=== PATIENT | female | born 2000 | race Caucasian/White ===

== ENCOUNTER 2020-03-12 11:24 | Emergency (ER) | payer MEDICAID, SELFPAY ==
[2020-03-12 11:59] VITALS: BP 112/76; PULSE 100; RESP 16; TEMP 37.1; O2SAT 99; BMI 23.8
--- NOTE | 2020-03-12 12:21 | ED.GENADULT ---
HPI - General Adult General Chief complaint: General Medical Stated complaint: SORE THROAT, WEAKNESS Time Seen by Provider: 03/12/20 12:19 Source: patient Mode of arrival: ambulatory Limitations: no limitations History of Present Illness HPI narrative: sore throat x 3 days. Denies Fevers, ear pain, nausea / vomiting, neck pain, stiff neck, trouble swallowing, changes in voices, cough, abdominal pain or urinary symptoms or diarrhea. Related Data Previous Rx's Medication Instructions Recorded acetaminophen-codeine 1 tab PO Q8H PRN #10 tab 03/12/20 amoxicillin-pot clavulanate 1 tab PO BID 10 Days #20 tab 03/12/20 [Augmentin] dexamethasone [Decadron] 6 mg PO ONCE #1 tab 03/12/20 Allergies Allergy/AdvReac Type Severity Reaction Status Date / Time PEANUT BUTTER Allergy Unknown RASH Uncoded 02/13/20 16:47 SEAFOOD Allergy Unknown UNKNOWN Uncoded 02/13/20 16:47 PMFSH Past Medical History Attestation statement: The following information was validated with the patient. Medical History Anxiety Asthma Social History Social History Alcohol intake: never Smoking Status: Never smoker Use of substances other than those prescribed or required for medical reasons: No Advance Directives: No Advance Directives Information Provided: No Physical Exam Vital Signs: Vital Signs: Vital Signs Temp Pulse Resp BP Pulse Ox 03/12/20 11:59 98.7 F 100 16 112/76 99 Body Mass Index 23.8 Const: General: cooperative, healthy appearing, comfortable, no acute distress, well developed, alert, awake and Physically active Nutritional Appearance: average body habitus and well nourished Orientation/consciousness: patient oriented x3 Limitations: no limitations HENMT: Head: Yes normal to inspection, Yes No palpable skull fracture present, Yes normocephalic and Yes atraumatic Ears: hearing grossly normal bilaterally General nose exam: Normal external nose present Face and sinus: Yes normal facial exam Mouth: moist mucous membranes Throat: Yes tonsils normal, Yes uvula midline and Yes other ( Erythema to posterior oropharynx with exudate noted) Eyes: General: appearance normal, both eyes and all related structures Visual Tatum: normal visual tatum by confrontation Alignment and Position: alignment normal Periorbital: periorbital findings normal Eyelids: Yes eyelids normal Conjunctivae: conjunctivae normal Sclerae: sclerae normal Pupils: Equal, round and reactive pupils present EOM: EOMs intact bilaterally Neck: Neck: Yes normal visual inspection, Yes full ROM, Yes no lymphadenopathy, Yes no meningeal signs, Yes trachea midline and Yes supple Chest: Chest palpation & inspection: normal inspection of the chest Resp: Effort & Inspection: normal respiratory effort and able to speak in complete sentences Auscultation: clear to auscultation bilaterally, no crackles, no rales, no rhonchi and no wheezes Cardio: Rate: regular rate Rhythm: regular rhythm Heart sounds: S1 normal heart sound present and S2 normal heart sound present Peripheral pulses: Peripheral pulses 2+ throughout GI: Inspection: Yes normal to inspection Palpation (GI): Soft to palpation, nontender and No hepatosplenomegaly present Percussion: Yes normal to percussion Auscultation: normal bowel sounds : General: Yes no CVA tenderness Back/Spine/Pelvis: Back: no CVA tenderness Cervical Spine: normal cervical lordosis and cervical ROM normal Thoracic/Lumbar Spine: thoracic and lumbar spine normal to inspection and thoraco-lumbar ROM normal Skin: General skin exam: no rashes or lesions noted, elasticity normal and turgor normal Trauma: no lacerations or abrasions Wounds: no wounds Hair: normal Nails: normal Neuro: General: patient oriented x3 and no meningeal signs Cranial nerves: Yes CN's II-XII intact bilaterally and Yes Equal, round and reactive pupils present Cognition (Neuro): normal cognition Gait exam (Neuro): Normal gait present Motor exam (neuro): 5/5 motor strength present throughout Extrem: General: Yes normal to inspection, Yes full ROM, Yes capillary refill normal, Yes no clubbing, cyanosis or edema, No no pedal edema, No no calf tenderness, Yes normal gait and No edema Right upper extremity: normal to inspection, full ROM and normal capillary refill; no edema Left upper extremity: normal to inspection, full ROM and normal capillary refill; no edema Right lower extremity: normal to inspection, full ROM and normal capillary refill; no edema Left lower extremity: normal to inspection, full ROM and normal capillary refill; no edema Psych: Appearance: grossly normal and well kempt Mental Status: mental status grossly normal Speech and movement: Normal speech and movement present and Clear speech present Affect: normal affect Attitude: cooperative Thought process: Normal thought process present Thought content: Normal thought content present Insight: Good insight present (Psych) Judgement: Good judgement present (Psych) Course Course Course Narrative: patient with sore throat for 3 days. Denies any other symptoms. On exam appears to have pharyngitis therefore would treat with antibiotics and symptomatic treatment along with instructions return if any new or worsening symptoms to follow-up with primary care provider. Patient understands agrees the plan. Discharge Plan Discharge Clinical Impression: Pharyngitis Patient Disposition: Home, Self-Care Instructions: Pharyngitis (ED) Prescriptions: New amoxicillin-pot clavulanate [Augmentin] 875-125 mg tablet 1 tab PO BID 10 Days Qty: 20 RF: 0 dexamethasone [Decadron] 6 mg tablet 6 mg PO ONCE Qty: 1 RF: 0 acetaminophen-codeine 300-30 mg tablet 1 tab PO Q8H PRN (Reason: pain) Qty: 10 RF: 0 Referrals: [facility] [Primary Care Provider] - 2 days Stand Alone Forms: Work/School Release Print Language: Jordanian
== END 2020-03-12 12:45 | disposition home or self-care (01) ==
PROVIDERS: Emergency Provider Emergency Medicine
DX: J02.9 Acute pharyngitis, unspecified (principal)
CPT/HCPCS: 87071; 99283

== ENCOUNTER 2020-03-16 13:13 | Emergency (ER) | payer MEDICAID, SELFPAY ==
--- NOTE | 2020-03-16 13:49 | ED.NAVMDI ---
HPI - Nausea/Vomiting/Diarrhea General Chief complaint: Nausea/Vomiting/Diarrhea Stated complaint: vomiting Time Seen by Provider: 03/16/20 13:48 Source: patient Mode of arrival: ambulatory Limitations: no limitations History of Present Illness HPI Narrative: 19 y/o female with recently diagnosed Strep throat started on Augmentin who presents with nausea, vomiting and burning chest pain associated with food intake for the last 2 days. She denies SOB, cough, abdominal pain, diarrhea, fevers. She was tested for COVID as well on 03/12 and it was negative. She continues to have sore throat although it is slowly improving. Related Data Previous Rx's Medication Instructions Recorded acetaminophen-codeine 1 tab PO Q8H PRN #10 tab 03/12/20 amoxicillin-pot clavulanate 1 tab PO BID 10 Days #20 tab 03/12/20 [Augmentin] dexamethasone [Decadron] 6 mg PO ONCE #1 tab 03/12/20 doxylamine-pyridoxine (vit B6) 1 tab PO BID #30 tab 03/16/20 [Diclegis] ondansetron HCl [Zofran] 4 mg PO Q8H PRN #20 tab 03/16/20 Allergies Allergy/AdvReac Type Severity Reaction Status Date / Time PEANUT BUTTER Allergy Unknown RASH Uncoded 02/13/20 16:47 SEAFOOD Allergy Unknown UNKNOWN Uncoded 02/13/20 16:47 Review of Systems Review of Systems: Constitutional: No Fever, No Chills ENT/Mouth: + sore throat, No Rhinorrhea, No Swallowing Difficulty Eyes: No Eye Pain, No Swelling, No Redness Cardiovascular: + Chest Pain, No SOB, No Orthopnea, No Edema Respiratory: No Cough, No Sputum, No Wheezing, No dyspnea Gastrointestinal: + Nausea, + Vomiting, No Diarrhea, No abdominal Pain Genitourinary: No Dysuria, No Urinary Frequency, No Hematuria Musculoskeletal: No joint pain, No Myalgias Skin: No Skin Lesions, No rash Neuro: No Weakness, No Numbness, No Dizziness, No Headache Psych: No Anxiety/Panic, No Depression Heme/Lymph: No Bruising, No Lymphadenopathy Endocrine: No Polyuria, No Polydipsia PMFSH Past Medical History Attestation statement: The following information was validated with the patient. Medical History Anxiety Asthma Social History Social History Alcohol intake: never Smoking Status: Never smoker Use of substances other than those prescribed or required for medical reasons: No Advance Directives: No Advance Directives Information Provided: No Physical Exam Vital Signs: Vital Signs: Vital Signs Temp Pulse Resp BP Pulse Ox 03/16/20 14:43 98.7 F 105 H 18 104/73 100 03/16/20 13:50 98.9 F 101 H 16 111/69 100 Body Mass Index 23.8 Appearance: Alert. Oriented X3. No acute distress. Eyes: Pupils equal, round and reactive to light. ENT: pharyngeal erythema with bilateral tonsillar swelling and exudates Neck: Normal inspection. Neck supple. CVS: tachycardic, regular rhythm. Pulses normal. Respiratory: No respiratory distress. Breath sounds normal. Abdomen: Soft and nontender. +BS x4 Skin: Skin warm and dry. Normal skin color. Normal skin turgor. No rashes. Extremities: No lower extremity edema. Neuro: Oriented X 3. No motor deficit. No sensory deficit. Course Course Course Narrative: patient with N/V and burning chest pain after food since starting Augmentin. Likely gastritis. Will get GI cockail, Zofran, IVF and check labs. Doubt cardiac chest pain. Reevaluation(s) Reevaluation #1: urine test is positive. patient has been informed. she states her last menstrual period was february 18. positive test explains her N/V. she has no abodominal pain and no vaginal bleeding at this time. will refer to OB for care. Reevaluation #2: nausea improved. she is tolerating PO. she states she is going to go to [facility] to pursue terminating the . she is stable for discharge. MDM - Nausea/Vomiting/Diarrhea Lab Data Attestation: I reviewed the patient's lab results. Result diagrams: 03/16/20 15:03 03/16/20 15:03 Labs: Lab Results 03/16/20 03/16/20 03/16/20 Range/Units 15:03 15:03 15:03 WBC 8.1 (4.8-10.8) X10*3/uL RBC 4.32 (4.20-5.50) X10*6/uL Hgb 12.8 (12.0-16.0) g/dl Hct 37.6 (37-47) % MCV 87.0 (80-98) fL MCH 29.6 (27.0-33.0) pg MCHC 34.0 (31.0-35.0) g/dl RDW 13.3 (11.0-16.0) % Plt Count 300 (160-400) X10*3/uL MPV 10.0 (9.4-12.3) fL Immature Gran % (Auto) 0.5 H (0.0-0.4) % Neut % (Auto) 67.9 (45-73) % Lymph % (Auto) 20.6 (20-40) % [place] % (Auto) 9.0 (2-11) % Eos % (Auto) 1.4 (0-4) % Baso % (Auto) 0.6 (0-2) % Lymph # (Auto) 1.7 (1.2-4.9) X10*3/uL [place] # (Auto) 0.7 (0.1-1.2) X10*3/uL Eos # (Auto) 0.1 (0.0-0.4) X10*3/uL Baso # (Auto) 0.1 (0.0-0.2) X10*3/uL Abs Immat Gran (auto) 0.04 H (0.00-0.03) X10*3/uL Absolute Neuts (auto) 5.5 (2.0-8.3) X10*3/uL Absolute Nucleated RBC 0.000 (0.0-0.012) X10*3/uL Nucleated RBC % (auto) 0.0 (0.0-0.2) /100WBC Sodium 135 (135-145) mmol/L Potassium 3.7 (3.3-5.1) mmol/l Chloride 100 (96-108) mmol/L Carbon Dioxide 26 (22-29) mmol/L Anion Gap 13 (12-20) BUN 8 L (9-16) mg/dL Creatinine 0.65 (0.5-1.4) mg/dL Estim Creat Clear Calc 108.2 Estimated GFR > 60 Random Glucose 96 (60-115) mg/dL Calcium 9.0 (8.4-10.2) mg/dL Total Bilirubin 0.5 (0.0-1.0) mg/dL Direct Bilirubin 0.2 (0.0-0.5) mg/dL AST 38 H (5-31) U/L ALT 31 (0-31) U/L Alkaline Phosphatase 72 (39-117) U/L Total Protein 8.4 H (6.5-8.0) g/dL Albumin 4.3 (3.5-5.0) g/dL Beta HCG, Quant 3043 mIU/mL Urine Color Urine Appearance Urine pH (5.0-8.0) Ur Specific [place] (1.005-1.025) Urine Protein (NEG-TRACE) MG/DL Urine Glucose (UA) (NEG) MG/DL Urine Ketones (NEG) MG/DL Urine Blood (NEG) Urine Nitrite (NEG) Ur Leukocyte Esterase (NEG) Urine Test (NEGATIVE) 03/16/20 Range/Units 15:09 WBC (4.8-10.8) X10*3/uL RBC (4.20-5.50) X10*6/uL Hgb (12.0-16.0) g/dl Hct (37-47) % MCV (80-98) fL MCH (27.0-33.0) pg MCHC (31.0-35.0) g/dl RDW (11.0-16.0) % Plt Count (160-400) X10*3/uL MPV (9.4-12.3) fL Immature Gran % (Auto) (0.0-0.4) % Neut % (Auto) (45-73) % Lymph % (Auto) (20-40) % [place] % (Auto) (2-11) % Eos % (Auto) (0-4) % Baso % (Auto) (0-2) % Lymph # (Auto) (1.2-4.9) X10*3/uL [place] # (Auto) (0.1-1.2) X10*3/uL Eos # (Auto) (0.0-0.4) X10*3/uL Baso # (Auto) (0.0-0.2) X10*3/uL Abs Immat Gran (auto) (0.00-0.03) X10*3/uL Absolute Neuts (auto) (2.0-8.3) X10*3/uL Absolute Nucleated RBC (0.0-0.012) X10*3/uL Nucleated RBC % (auto) (0.0-0.2) /100WBC Sodium (135-145) mmol/L Potassium (3.3-5.1) mmol/l Chloride (96-108) mmol/L Carbon Dioxide (22-29) mmol/L Anion Gap (12-20) BUN (9-16) mg/dL Creatinine (0.5-1.4) mg/dL Estim Creat Clear Calc Estimated GFR Random Glucose (60-115) mg/dL Calcium (8.4-10.2) mg/dL Total Bilirubin (0.0-1.0) mg/dL Direct Bilirubin (0.0-0.5) mg/dL AST (5-31) U/L ALT (0-31) U/L Alkaline Phosphatase (39-117) U/L Total Protein (6.5-8.0) g/dL Albumin (3.5-5.0) g/dL Beta HCG, Quant mIU/mL Urine Color YELLOW Urine Appearance CLEAR Urine pH 6.5 (5.0-8.0) Ur Specific [place] 1.020 (1.005-1.025) Urine Protein NEG (NEG-TRACE) MG/DL Urine Glucose (UA) NEG (NEG) MG/DL Urine Ketones 5 (NEG) MG/DL Urine Blood NEG (NEG) Urine Nitrite NEG (NEG) Ur Leukocyte Esterase NEG (NEG) Urine Test POSITIVE H (NEGATIVE) ECG Data Attestation: I personally reviewed and interpreted this ECG as follows: ECG interpretation date: 03/16/20 ECG interpretation time: 15:08 Interpretation: normal sinus rhythm with sinus arrythmia. HR 96 BPM with normal MI interval. Discharge Plan Discharge Clinical Impression: Qualifiers: Weeks of gestation: unspecified Qualified Code(s): Z34.90 - Encounter for supervision of normal , unspecified, unspecified trimester Patient Disposition: Home, Self-Care Instructions: Nausea and Vomiting in (ED), First Trimester (ED) Additional Instructions: Follow up with [facility] for care. Stay hydrated. Take TUMS for indigestion and acid reflux. If no improvement with TUMS, you can also try Prilosec to help reduce the acid in your stomach. If you develop persistent nausea and vomiting with inability to keep down solids or liquids, vaginal bleeding or abdominal pain call 911 or come back to the ER for further evaluation. Continue taking your antibiotic for Strep throat. Prescriptions: New doxylamine-pyridoxine (vit B6) [Diclegis] 10-10 mg tablet,delayed release (DR/EC) 1 tab PO BID Qty: 30 RF: 0 ondansetron HCl [Zofran] 4 mg tablet 4 mg PO Q8H PRN (Reason: nausea and vomiting) Qty: 20 RF: 0 No Action amoxicillin-pot clavulanate [Augmentin] 875-125 mg tablet 1 tab PO BID 10 Days Qty: 20 RF: 0 dexamethasone [Decadron] 6 mg tablet 6 mg PO ONCE Qty: 1 RF: 0 acetaminophen-codeine 300-30 mg tablet 1 tab PO Q8H PRN (Reason: pain) Qty: 10 RF: 0 Referrals: Matthias Hannon MD [Physician] - 2 days
[2020-03-16 13:50] VITALS: BP 111/69; PULSE 101; RESP 16; TEMP 37.2; O2SAT 100; BMI 23.8
--- NOTE | 2020-03-16 14:12 | ECG_ITS ---
Test Reason : chest pain Blood Pressure : / mmHG Vent. Rate : 096 BPM Atrial Rate : 096 BPM P-R Int : 126 ms QRS Dur : 078 ms QT Int : 342 ms P-R-T Axes : 057 054 041 degrees QTc Int : 432 ms Normal sinus rhythm with sinus arrhythmia Possible Early repolarization Normal ECG When compared with ECG of 20-AUG-2018 11:52, Heart rate has decreased Referred By: Candice Thompson Electronically Signed By:BRITTANY JACOBS MD
[2020-03-16 14:43] VITALS: BP 104/73; PULSE 105; RESP 18; TEMP 37.1; O2SAT 100
--- NOTE | 2020-03-16 14:54 | PC.NURSE ---
pt alert and oriented, skin pwd, respirations even an unlabored. pt reports last two days having epigastric pain with vomiting, also states chest pain that is relieved with vomiting. pt is currently being treated with antibiotics for strep throat, ns on the monitor
[2020-03-16] MEDS: 0.9 % Sodium Chloride 1,000 ML 999 ML IVCONT (15:05)
[2020-03-16] MEDS: ondansetron HCL 4 MG/2 ML VIAL IVPUSH (15:10)
[2020-03-16 15:12] LABS: MANUAL DIFF FLAG NO
[2020-03-16 15:13] LABS: Basophils Absolute Auto 0.1 X10*3/uL (0.0-0.2); Basophils Percent Auto 0.6 % (0-2); Eosinophils Absolute Auto 0.1 X10*3/uL (0.0-0.4); Eosinophils Percent Auto 1.4 % (0-4); Hematocrit 37.6 % (37-47); Hemoglobin 12.8 g/dl (12.0-16.0); Imm Gran Abs Auto 0.04 X10*3/uL (0.00-0.03); Imm Gran Pct Auto 0.5 % (0.0-0.4); Lymphocytes Absolute Auto 1.7 X10*3/uL (1.2-4.9); Lymphocytes Percent Auto 20.6 % (20-40); Mean Corpuscular Hemoglobin 29.6 pg (27.0-33.0); Monocytes Absolute Auto 0.7 X10*3/uL (0.1-1.2); Neutrophils Absolute Auto 5.5 X10*3/uL (2.0-8.3); Neutrophils Percent Auto 67.9 % (45-73); Platelet Count 300 X10*3/uL (160-400); Red Blood Count 4.32 X10*6/uL (4.20-5.50); Red Cell Distribution Width 13.3 % (11.0-16.0); White Blood Count 8.1 X10*3/uL (4.8-10.8)
[2020-03-16 15:16] LABS: Glucose Urine UA NEG (NEG); Leukocyte Esterase Urine NEG (NEG); Nitrite Urine NEG (NEG); PH 6.5 (5.0-8.0); Urine Blood NEG (NEG); Urine Ketones 5 MG/DL (NEG); Urine Protein NEG (NEG-TRACE)
[2020-03-16 15:23] LABS: Appearance Urine CLEAR; Color Urine YELLOW; UPreg QC Valid YES; Urine Pregnancy POSITIVE (NEGATIVE)
[2020-03-16 15:36] LABS: Alanine Aminotransferase 31 U/L (0-31); Albumin Level 4.3 g/dL (3.5-5.0); Alkaline Phosphatase 72 U/L (39-117); Anion Gap 13 (12-20); Aspartate Amino Transferase 38 U/L (5-31); Bilirubin Direct 0.2 mg/dL (0.0-0.5); Blood Urea Nitrogen 8 mg/dL (9-16); Carbon Dioxide 26 mmol/L (22-29); Chloride 100 mmol/L (96-108); Creatinine Clr Calc Pharmacy 108.2; Estimated Glomerular Filt Rate > 60; Glucose Random 96 mg/dL (60-115); Potassium 3.7 mmol/l (3.3-5.1); Sodium 135 mmol/L (135-145); Total Protein 8.4 g/dL (6.5-8.0)
[2020-03-16 15:41] LABS: HCG Quantitative 3043 mIU/mL
[2020-03-16] MEDS: Omeprazole 40 MG CAPSULE.DR PO (15:41)
[2020-03-16 15:44] LABS: Bilirubin Total 0.5 mg/dL (0.0-1.0)
--- NOTE | 2020-03-16 15:44 | PC.NURSE ---
PT REPORTS THAT HER NAUSEA IS SLIGHTLY BETTER, DID TAKE HER PRILOSEC BUT NOT READY TO DRINK THE MAG/LIDO, SINUS TACH ON THE MONIOTR AT THIS TIME
[2020-03-16] MEDS: Lidocaine HCl Viscous 2 % 15 ML SOLUTION MUCOUS MEM (16:37)
[2020-03-16] MEDS: Magnesium Hydrox/Alum Hydrox 30 ML ORAL.SUSP PO (16:37)
== END 2020-03-16 16:43 | disposition home or self-care (01) ==
PROVIDERS: Physician Assistant; Emergency Provider Emergency Medicine; PCP Internal Medicine
DX: O26.90 Pregnancy related conditions, unspecified, unspecified trimester (principal); Z3A.00 Weeks of gestation of pregnancy not specified
CPT/HCPCS: 36415; 80048; 80076; 81003; 81025; 84702; 85025; 93005; 96361; 96374; 99284; 99285; J2405

== ENCOUNTER → 2020-04-02 10:56 | Outpatient (BNVA) | payer MEDICAID, SELFPAY | PROVIDERS: Visit Provider Advanced Practice Midwife | DX: Z76.89 Persons encountering health services in other specified circumstances (principal) ==

== ENCOUNTER 2020-04-02 12:12 | Outpatient (REF) | payer MEDICAID, SELFPAY ==
--- NOTE | 2020-04-02 12:18 | US_ITS ---
EXAMINATION: US OBSTETRICAL ULTRASOUND CLINICAL INFORMATION: Left lower quadrant pain. Early . COMPARISON: None. LMP: Unknown. TECHNIQUE: Ultrasound of the maternal pelvis is performed using transabdominal transducer. M-mode Doppler is also performed. FINDINGS: There is a single intrauterine gestational sac with visible yolk sac, embryo/fetus, and cardiac activity. There is no significant subchorionic hemorrhage or hematoma. The sac is within the upper limits of normal measuring 0.54 cm (inner to inner diameter). HR: 147 beats per minute. CRL (crown rump length): 0.78 cm (6 weeks 5 days +/- 4 days). SHIVAM (estimated date of delivery): 11/21/2020 +/- 4 days. MATERNAL ADNEXA: The right maternal ovary measures 2.8 x 1.8 x 2.5 cm. The left maternal ovary measures 2.4 x 1.6 x 1.9 cm. No significant maternal adnexal mass. No maternal pelvic ascites. US/US OB <= 14 weeks fetus IMPRESSION: 1. Single intrauterine gestation with ultrasound gestational age of 6 weeks 5 days +/- 4 days. 2. Estimated date of delivery is 11/21/2020 +/- 4 days. 3. No maternal adnexal mass or pelvic ascites.
== END 2020-04-02 12:13 | disposition home or self-care (01) ==
LOC: HO.US 12:12
PROVIDERS: Visit Provider Advanced Practice Midwife
DX: O26.899 Other specified pregnancy related conditions, unspecified trimester (principal); R10.32 Left lower quadrant pain
CPT/HCPCS: 76801; 99211

== ENCOUNTER 2020-04-22 23:46 | Emergency (ER) | payer MEDICAID, SELFPAY ==
[2020-04-23 00:19] VITALS: BP 132/93; PULSE 123; RESP 18; TEMP 36.8; O2SAT 98; BMI 22.3
[2020-04-23 00:28] VITALS: BP 132/93; PULSE 129; RESP 18; TEMP 36.8; O2SAT 98
--- NOTE | 2020-04-23 01:03 | ED_ITS ---
HPI - General Adult General Chief complaint: General Medical Stated complaint: Foot swelling Time Seen by Provider: 04/23/20 00:13 Source: patient Mode of arrival: ambulatory Limitations: no limitations History of Present Illness HPI narrative: Patient presents to the ED for ulcerative rash on bilateral lower extremities that was initially diagnosed as follicutlitis. Patient states now foot has same erythematous rash and slight swelling. Related Data Previous Rx's Medication Instructions Recorded acetaminophen-codeine 1 tab PO Q8H PRN #10 tab 03/12/20 amoxicillin-pot clavulanate 1 tab PO BID 10 Days #20 tab 03/12/20 [Augmentin] dexamethasone [Decadron] 6 mg PO ONCE #1 tab 03/12/20 doxylamine-pyridoxine (vit B6) 1 tab PO BID #30 tab 03/16/20 [Diclegis] ondansetron HCl [Zofran] 4 mg PO Q8H PRN #20 tab 03/16/20 vitamin with calcium 1 tab PO DAILY 30 Days #30 tab 04/02/20 no.72-iron 27 mg-folic acid 1 mg tablet doxycycline monohydrate 100 mg PO BID #14 cap 04/23/20 Allergies Allergy/AdvReac Type Severity Reaction Status Date / Time PEANUT BUTTER Allergy Intermediate RASH Uncoded 04/23/20 00:19 SEAFOOD AdvReac Severe Anaphylaxis Uncoded 04/23/20 00:19 Review of Systems Review of Systems: Yes all other systems are reviewed and are negative Constitutional: Constitutional: Reports as per HPI and Reports no additional constitutional complaints Eyes: Eyes: Reports as per HPI and Reports no additional eye complaints ENT: Reports system reviewed and no additional complaints, except as documented and Reports as per HPI Cardiovascular: Cardiovascular: Reports as per HPI and Reports no additional cardiovascular complaints Respiratory: Respiratory: Reports as per HPI and Reports no additional respiratory complaints Gastrointestinal: Gastrointestinal: Reports as per HPI and Reports no additional gastrointestinal complaints Genitourinary: Genitourinary: Reports no additional female genitourinary compl aints and Reports as per HPI Musculoskeletal: Comments: lower extremities rash Neurologic: Reports system reviewed and no additional complaints, except as documented and Reports as per HPI Psychiatric: Psychiatric: Reports no additional psychiatric complaints and Reports as per HPI PMFSH Past Medical History Medical History Anxiety Asthma Social History Social History Alcohol intake: never Smoking Status: Never smoker Smoked in Last 30 Days: No Advance Directives: No Physical Exam Vital Signs: Vital Signs: Last Vital Signs Temp 98.2 F 04/23/20 00:28 Pulse 106 H 04/23/20 01:11 Resp 18 04/23/20 01:11 BP 116/74 04/23/20 01:11 Pulse Ox 99 04/23/20 01:11 Body Mass Index 22.3 Const: General: cooperative, healthy appearing, comfortable, no acute distress and well developed Orientation/consciousness: oriented to person, oriented to place and patient oriented x3 HENMT: Head: Yes normal to inspection and Yes No palpable skull fracture present Eyes: General: appearance normal, both eyes and all related structures Neck: Neck: Yes normal visual inspection and Yes full ROM Chest: Chest palpation & inspection: normal inspection of the chest and normal palpation of entire chest wall Resp: Effort & Inspection: normal respiratory effort and able to speak in complete sentences Cardio: Jugular venous distension: no JVD Heart sounds: S1 normal heart sound present and S2 normal heart sound present GI: Inspection: Yes normal to inspection : General: No CVA tenderness and Yes no CVA tenderness Back/Spine/Pelvis: Back: no CVA tenderness, No CVA tenderness and No back tenderness Skin: Other: Lower extremities positive for multiple circular areas with pustule/papule and ulcerated. Left foot has erythema also with pustule/ulcer and sligh slight swelling. negative for leg swelling or calf pain Patient also has post still slight ulceration on 2 fingers on each hand. Patient also has 1 pustule on the back. Neuro: General: oriented to person, oriented to place, patient oriented x3, gait normal and CN's II-XI intact bilaterally Cranial nerves: Yes CN's II-XII intact bilaterally Extrem: Other: Pustular erythematous ulcerated rash on lower extremities. Pulses lower extremities intact Psych: Appearance: grossly normal, well kempt and not disheveled Course Course Course Narrative: rash evaluated with Dr. 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 Will do basic labs including CRP and ESR. Patient states he just started Keflex yesterday. Will add doxycycline p.o. Reevaluation(s) Reevaluation #1: elevated ESR and CRP indicates inflammatory process occurring. according to UpToDate patient will need outpatient lab work to evaluate for lupus, rheumatoid arthritis, hyper coagulability disorders, and hepatitis. Patient made aware of this. Patient also have referral to Dermatology. Patient will have doxycycline added to Keflex due to mild cellulitis of the left foot. Patient is not toxic appearing. Patient is not septic and does not need septic workup. Patient tachycardia improved. Patient was anxious. Patient informed if he has fever, chills chest pain, shortness of breath, worsening swelling, or any other concerning symptoms she should come back to the ER immediately. patient informed to continue taking Keflex. Patient given copy of labs. Medical Decision Making MDM Narrative Medical decision making narrative: Pyoderma gangrenosum Lab Data Result diagrams: 04/23/20 00:40 04/23/20 00:40 Labs: Lab Results 04/23/20 04/23/20 04/23/20 Range/Units 00:40 00:40 00:40 WBC 12.2 H (4.8-10.8) X10*3/uL RBC 4.06 L (4.20-5.50) X10*6/uL Hgb 11.7 L (12.0-16.0) g/dl Hct 36.1 L (37-47) % MCV 88.9 (80-98) fL MCH 28.8 (27.0-33.0) pg MCHC 32.4 (31.0-35.0) g/dl RDW 13.9 (11.0-16.0) % Plt Count 269 (160-400) X10*3/uL MPV 11.3 (9.4-12.3) fL Immature Gran % (Auto) 0.3 (0.0-0.4) % Neut % (Auto) 66.6 (45-73) % Lymph % (Auto) 20.4 (20-40) % Fulton % (Auto) 9.9 (2-11) % Eos % (Auto) 2.4 (0-4) % Baso % (Auto) 0.4 (0-2) % Lymph # (Auto) 2.5 (1.2-4.9) X10*3/uL Fulton # (Auto) 1.2 (0.1-1.2) X10*3/uL Eos # (Auto) 0.3 (0.0-0.4) X10*3/uL Baso # (Auto) 0.1 (0.0-0.2) X10*3/uL Abs Immat Gran (auto) 0.04 H (0.00-0.03) X10*3/uL Absolute Neuts (auto) 8.1 (2.0-8.3) X10*3/uL Absolute Nucleated RBC 0.000 (0.0-0.012) X10*3/uL Nucleated RBC % (auto) 0.0 (0.0-0.2) /100WBC PT 14.8 H (10.8-13.0) SEC INR 1.2 H (0.9-1.1) APTT 38.0 (24.1-38.0) SEC Sodium 139 (135-145) mmol/L Potassium 4.1 (3.3-5.1) mmol/l Chloride 104 (96-108) mmol/L Carbon Dioxide 27 (22-29) mmol/L Anion Gap 12 (12-20) BUN 10 (9-16) mg/dL Creatinine 0.70 (0.5-1.4) mg/dL Estim Creat Clear Calc 100.5 Estimated GFR > 60 Random Glucose 106 (60-115) mg/dL Calcium 9.4 (8.4-10.2) mg/dL Total Bilirubin 0.5 (0.0-1.0) mg/dL AST 16 D (5-31) U/L ALT 12 (0-31) U/L Alkaline Phosphatase 73 (39-117) U/L C-Reactive Protein 4.18 H (< or = 0.50) mg/dL Total Protein 8.7 H (6.5-8.0) g/dL Albumin 4.1 (3.5-5.0) g/dL Discharge Plan Discharge Clinical Impression: Pyoderma gangrenosa, Cellulitis Patient Disposition: Home, Self-Care Instructions: Cellulitis (ED) Prescriptions: New doxycycline monohydrate 100 mg capsule 100 mg PO BID Qty: 14 RF: 0 No Action amoxicillin-pot clavulanate [Augmentin] 875-125 mg tablet 1 tab PO BID 10 Days Qty: 20 RF: 0 dexamethasone [Decadron] 6 mg tablet 6 mg PO ONCE Qty: 1 RF: 0 acetaminophen-codeine 300-30 mg tablet 1 tab PO Q8H PRN (Reason: pain) Qty: 10 RF: 0 doxylamine-pyridoxine (vit B6) [Diclegis] 10-10 mg tablet,delayed release (DR/EC) 1 tab PO BID Qty: 30 RF: 0 ondansetron HCl [Zofran] 4 mg tablet 4 mg PO Q8H PRN (Reason: nausea and vomiting) Qty: 20 RF: 0 Vitamin Plus Low Iron 27 mg iron- 1 mg tablet 1 tab PO DAILY 30 Days Qty: 30 RF: 11 Referrals: Falguni Guadarrama MD [Primary Care Provider] - 2 days (Rash indicates Pyoderma gangrenosum. Will labs such as hepatic panel, RH factor, Antineutrophilic cytoplasmic antibodies, Antinuclear antibody titer, and hypercoagulability studies. Patient will need referral to Dermitalogist. ) Marky Head MD [Physician] - 2 days (Pyoderma Gangrenosum.) Discharge Date/Time: 04/23/20 02:09 Print Language: Macedonian
[2020-04-23 01:11] VITALS: BP 116/74; PULSE 106; RESP 18; O2SAT 99
[2020-04-23 01:15] LABS: Basophils Absolute Auto 0.1 X10*3/uL (0.0-0.2); Basophils Percent Auto 0.4 % (0-2); Eosinophils Absolute Auto 0.3 X10*3/uL (0.0-0.4); Eosinophils Percent Auto 2.4 % (0-4); Hematocrit 36.1 % (37-47); Hemoglobin 11.7 g/dl (12.0-16.0); Imm Gran Abs Auto 0.04 X10*3/uL (0.00-0.03); Imm Gran Pct Auto 0.3 % (0.0-0.4); Lymphocytes Absolute Auto 2.5 X10*3/uL (1.2-4.9); Lymphocytes Percent Auto 20.4 % (20-40); MANUAL DIFF FLAG NO; Mean Corpuscular HGB Conc 32.4 g/dl (31.0-35.0); Mean Corpuscular Hemoglobin 28.8 pg (27.0-33.0); Mean Corpuscular Volume 88.9 fL (80-98); Mean Platelet Volume 11.3 fL (9.4-12.3); Monocytes Absolute Auto 1.2 X10*3/uL (0.1-1.2); Monocytes Percent Auto 9.9 % (2-11); Neutrophils Absolute Auto 8.1 X10*3/uL (2.0-8.3); Neutrophils Percent Auto 66.6 % (45-73); Platelet Count 269 X10*3/uL (160-400); Red Blood Count 4.06 X10*6/uL (4.20-5.50); Red Cell Distribution Width 13.9 % (11.0-16.0); White Blood Count 12.2 X10*3/uL (4.8-10.8)
[2020-04-23 01:20] LABS: INTERNATIONAL NORM RATIO 1.2 (0.9-1.1); Prothrombin Time 14.8 SEC (10.8-13.0)
[2020-04-23 01:44] LABS: Alanine Aminotransferase 12 U/L (0-31); Albumin Level 4.1 g/dL (3.5-5.0); Alkaline Phosphatase 73 U/L (39-117); Anion Gap 12 (12-20); Aspartate Amino Transferase 16 U/L (5-31); Bilirubin Total 0.5 mg/dL (0.0-1.0); Blood Urea Nitrogen 10 mg/dL (9-16); C Reactive Protein 4.18 mg/dL (< or = 0.50); Calcium 9.4 mg/dL (8.4-10.2); Carbon Dioxide 27 mmol/L (22-29); Chloride 104 mmol/L (96-108); Creatinine Clr Calc Pharmacy 100.5; Estimated Glomerular Filt Rate > 60; Glucose Random 106 mg/dL (60-115); Potassium 4.1 mmol/l (3.3-5.1); Sodium 139 mmol/L (135-145); Total Protein 8.7 g/dL (6.5-8.0)
[2020-04-23 01:50] LABS: Erythrocyte Sedimentation Rate 54 MM/HR (0-20)
== END 2020-04-23 02:09 | disposition home or self-care (01) ==
PROVIDERS: Physician Assistant; Emergency Provider Emergency Medicine; PCP Internal Medicine
DX: L88 Pyoderma gangrenosum (principal); L03.116 Cellulitis of left lower limb; L03.115 Cellulitis of right lower limb; Z79.899 Other long term (current) drug therapy
CPT/HCPCS: 36415; 80053; 85025; 85610; 85652; 85730; 86140; 99283; 99284

== ENCOUNTER → 2020-05-11 14:03 | Outpatient (BNVA) | payer MEDICAID, SELFPAY | PROVIDERS: Visit Provider Advanced Practice Midwife | DX: Z76.89 Persons encountering health services in other specified circumstances (principal) ==

== ENCOUNTER 2020-11-26 02:16 | Emergency (ER) | payer MEDICAID, SELFPAY ==
[2020-11-26 02:20] VITALS: BP 139/89; PULSE 128; RESP 16; TEMP 36.2; O2SAT 97; BMI 23.8
--- NOTE | 2020-11-26 02:48 | PC.NURSE ---
PT WENT OUT TO MEET HER MOM IN CAR, NEVER CAME BACK IN.
== END 2020-11-26 03:27 | disposition left against medical advice (07) ==
PROVIDERS: Emergency Provider Emergency Medicine; PCP Internal Medicine
DX: R10.9 Unspecified abdominal pain (principal)
CPT/HCPCS: 99281; 99282

== ENCOUNTER 2021-04-06 02:06 | Emergency (ER) | payer MEDICAID, SELFPAY ==
[2021-04-06 02:09] VITALS: BP 121/76; PULSE 112; RESP 18; TEMP 36.6; O2SAT 97; BMI 24.1
--- NOTE | 2021-04-06 02:44 | ED_ITS ---
HPI - Abdominal Pain General Chief Complaint: Abdominal Pain Stated Complaint: Flank pain Time Seen by Provider: 04/06/21 02:12 Source: patient Mode of arrival: ambulatory Limitations: no limitations History of Present Illness HPI narrative: LLQ pain prior to arrival initially severe but now its gone and she feels fine - no other symptoms, thinks it's gas and wants to go home. Does not want to be seen back in the ED or to have treatments done. No concern for . ELOPED from the TRIAGE area. We did speak and I tried to get her to come back to be seen but she would not go back to treatment area, history and exam limited MD elicited complaint: abdominal pain Pertinent past history: none Onset (ago): minute(s) Pain Consistency: now resolved Location: LLQ Severity: moderate Quality: stabbing Radiation: none Exacerbating factors: nothing Relieving factors: nothing Associated symptoms: denies other symptoms Related Data Previous Rx's Medication Instructions Recorded acetaminophen 300 mg-codeine 30 mg 1 tab PO Q8H PRN #10 tab 03/12/20 tablet amoxicillin 875 mg-potassium 1 tab PO BID 10 Days #20 tab 03/12/20 clavulanate 125 mg tablet (Augmentin) dexamethasone 6 mg tablet 6 mg PO ONCE #1 tab 03/12/20 (Decadron) doxylamine 10 mg-pyridoxine (vit 1 tab PO BID #30 tab 03/16/20 B6) 10 mg tablet,delayed release (Diclegis) ondansetron HCl 4 mg tablet 4 mg PO Q8H PRN #20 tab 03/16/20 (Zofran) vitamin with calcium 1 tab PO DAILY 30 Days #30 tab 04/02/20 no.72-iron 27 mg-folic acid 1 mg tablet ( Vitamins Plus Low Iron) doxycycline monohydrate 100 mg 100 mg PO BID #14 cap 04/23/20 capsule Allergies Allergy/AdvReac Type Severity Reaction Status Date / Time PEANUT BUTTER Allergy Intermediate RASH Uncoded 04/23/20 00:19 SEAFOOD AdvReac Severe Anaphylaxis Uncoded 04/23/20 00:19 Review of Systems Review of Systems Constitutional : No Weight loss, No Fever, No Chills ENT/Mouth : No sore throat, No Rhinorrhea Eyes: No Swelling, No Redness Cardiovascular : No Chest Pain, No SOB, NoEdema Respiratory : No Cough, No Sputum, No Wheezing Gastrointestinal :no Nausea, no Vomiting, no Diarrhea, positive abdominal Pain, No Hematochezia, No Melena Genitourinary : No Dysuria, No Urinary Frequency, No Hematuria, No Urgency Musculoskeletal : No joint pain, No Myalgias, No Joint Swelling Physical Exam Vital Signs: Vital Signs: Last Vital Signs Temp 97.8 F 04/06/21 02:09 Pulse 112 H 04/06/21 02:09 Resp 18 04/06/21 02:09 BP 121/76 04/06/21 02:09 Pulse Ox 97 04/06/21 02:09 Body Mass Index 24.1 PATIENT WAS NOT EXAMINED I SPOKE TO HER IN TRIAGE TO TRY TO GET HER TO COME BACK TO A TREATMENT AREA AFTER HER ABDOMINAL PAIN RESOLVED MDM - Abdominal Pain MDM Narrative Medical decision making narrative: LLQ pain resolved while waiting in triage, while we did speak she wanted to leave and not come back to the treatment area - stable for DC, ELOPED Discharge Plan Discharge Clinical Impression: Abdominal pain Qualifiers: Abdominal location: left lower quadrant Qualified Code(s): R10.32 - Left lower quadrant pain Patient Disposition: Elopement Prescriptions: No Action amoxicillin-pot clavulanate [Augmentin] 875-125 mg tablet 1 tab PO BID 10 Days Qty: 20 RF: 0 dexamethasone [Decadron] 6 mg tablet 6 mg PO ONCE Qty: 1 RF: 0 acetaminophen-codeine 300-30 mg tablet 1 tab PO Q8H PRN (Reason: pain) Qty: 10 RF: 0 doxylamine-pyridoxine (vit B6) [Diclegis] 10-10 mg tablet,delayed release (DR/EC) 1 tab PO BID Qty: 30 RF: 0 ondansetron HCl [Zofran] 4 mg tablet 4 mg PO Q8H PRN (Reason: nausea and vomiting) Qty: 20 RF: 0 doxycycline monohydrate 100 mg capsule 100 mg PO BID Qty: 14 RF: 0 Vitamin Plus Low Iron 27 mg iron- 1 mg tablet 1 tab PO DAILY 30 Days Qty: 30 RF: 11 Discharge Date/Time: 04/06/21 03:04 [facility] Past Medical History Attestation statement: The following information was validated with the patient. Medical History Anxiety Asthma Social History Social History (Updated 04/06/21 @ 02:53 by Lin Ramirez DO) Alcohol intake: never Patient Tobacco Use Status: Never used Tobacco Advance Directives: No Patient : No
== END 2021-04-06 03:04 | disposition left against medical advice (07) ==
PROVIDERS: Emergency Provider Emergency Medicine
DX: R10.32 Left lower quadrant pain (principal)
CPT/HCPCS: 99281; 99282

== ENCOUNTER 2021-10-01 05:37 | Emergency (ER) | payer MEDICAID, SELFPAY ==
[2021-10-01 05:40] VITALS: BP 113/72; BP 120/80; PULSE 104; PULSE 115; RESP 18; TEMP 37.5; O2SAT 98; O2SAT 99; BMI 23.9
--- NOTE | 2021-10-01 05:57 | ED.DENTAL ---
HPI - Dental/Oral General Chief complaint: Nausea/Vomiting/Diarrhea Stated complaint: N/V Time Seen by Provider: 10/01/21 05:51 Source: patient Mode of arrival: ambulatory Limitations: no limitations History of Present Illness HPI Narrative: Patient with ongoing pain of right lower 3rd molar with over growing gum with pain patient vomits vomited 2 times with increased pain today plan to get the surgery done following dentist Related Data Previous Rx's Medication Instructions Recorded acetaminophen 300 mg-codeine 30 mg 1 tab PO Q8H PRN #10 tab 03/12/20 tablet amoxicillin 875 mg-potassium 1 tab PO BID 10 Days #20 tab 03/12/20 clavulanate 125 mg tablet (Augmentin) dexamethasone 6 mg tablet 6 mg PO ONCE #1 tab 03/12/20 (Decadron) doxylamine 10 mg-pyridoxine (vit 1 tab PO BID #30 tab 03/16/20 B6) 10 mg tablet,delayed release (Diclegis) ondansetron HCl 4 mg tablet 4 mg PO Q8H PRN #20 tab 03/16/20 (Zofran) vitamin with calcium 1 tab PO DAILY 30 Days #30 tab 04/02/20 no.72-iron 27 mg-folic acid 1 mg tablet ( Vitamins Plus Low Iron) doxycycline monohydrate 100 mg 100 mg PO BID #14 cap 04/23/20 capsule ondansetron 4 mg disintegrating 4 mg PO Q6-8H PRN #7 tab 10/01/21 tablet tramadol 50 mg tablet 50 mg PO Q6H PRN #20 tab 10/01/21 Allergies Allergy/AdvReac Type Severity Reaction Status Date / Time PEANUT BUTTER Allergy Intermediate RASH Uncoded 04/23/20 00:19 SEAFOOD AdvReac Severe Anaphylaxis Uncoded 04/23/20 00:19 Review of Systems Review of Systems: Yes all other systems are reviewed and are negative PMF Past Medical History Medical History Anxiety Asthma Social History Social History Alcohol intake: never Patient Tobacco Use Status: Never used Tobacco Advance Directives: No Patient : No Physical Exam Vital Signs: Vital Signs: Last Vital Signs Temp 99.5 F 10/01/21 05:40 Pulse 104 H 10/01/21 05:40 Resp 18 10/01/21 05:40 BP 113/72 10/01/21 05:40 Pulse Ox 98 10/01/21 05:40 BMI result Body Mass Index 23.9 Const: General: healthy appearing and comfortable HEENT: Teeth image: 1. Gum over tooth 32 no caries tender to touch Throat: Yes posterior oropharynx normal Procedures Nerve Block Nerve Block 1: Local Anesthetic: lidocaine 2% Side: right Intraoral Nerve Block: inferior alveolar Procedure Successful: Yes Patient Tolerated Procedure: well and no complications Complications: none Discharge Plan Discharge Clinical Impression: Toothache Patient Disposition: Home, Self-Care Instructions: Toothache (ED) Additional Instructions: Follow-up with dentist Pain medicine as Prescriptions: New tramadol 50 mg tablet 50 mg PO Q6H PRN (Reason: pain) Qty: 20 0RF ondansetron 4 mg tablet,disintegrating 4 mg PO Q6-8H PRN (Reason: nausea and vomiting) Qty: 7 0RF No Action amoxicillin-pot clavulanate [Augmentin] 875-125 mg tablet 1 tab PO BID 10 Days Qty: 20 0RF dexamethasone [Decadron] 6 mg tablet 6 mg PO ONCE Qty: 1 0RF acetaminophen-codeine 300-30 mg tablet 1 tab PO Q8H PRN (Reason: pain) Qty: 10 0RF doxylamine-pyridoxine (vit B6) [Diclegis] 10-10 mg tablet,delayed release (DR/EC) 1 tab PO BID Qty: 30 0RF ondansetron HCl [Zofran] 4 mg tablet 4 mg PO Q8H PRN (Reason: nausea and vomiting) Qty: 20 0RF doxycycline monohydrate 100 mg capsule 100 mg PO BID Qty: 14 0RF Vitamin Plus Low Iron 27 mg iron- 1 mg tablet 1 tab PO DAILY 30 Days Qty: 30 11RF Rx Instructions: give with food (meal/snack)
[2021-10-01] MEDS: Lidocaine HCl 2 % MPF 5 ML VIAL INFILTRATI (05:59)
[2021-10-01] MEDS: Ondansetron ODT 4 MG TAB.RAPDIS TRANSLINGU (06:19)
== END 2021-10-01 06:44 | disposition home or self-care (01) ==
PROVIDERS: Emergency Provider Internal Medicine
DX: K08.89 Other specified disorders of teeth and supporting structures (principal); J45.909 Unspecified asthma, uncomplicated
CPT/HCPCS: 64400; 99283; 99284

== ENCOUNTER 2023-03-20 23:40 | Emergency (ER) | payer MEDICAID, SELFPAY ==
[2023-03-20 23:47] VITALS: BP 116/66; PULSE 97; RESP 18; TEMP 36.7; O2SAT 100; BMI 26.5
--- OUTSIDE RECORDS SUMMARY | 2023-03-20 23:58 | XMS_ITS | Continuity of Care Document ---
Author Name Unknown Organization [facility] Address [address] [place] [id number]- Care Team Providers Care Senior Tax Accountant Name Role Phone Wili Chapa MD, Falguni Wells Primary Care Physici an Encounter [facility] Date(s): 11/09/22 - 12/09/[address] [address]- Allergies, Adverse Reactions, Alerts Substance Reaction Severity Status Peanuts Active Seafood Persistent Severe Active Immunizations Given and Recorded Vaccine Date Status Refusal Reason influenza virus vaccine, inactivated 02/20/17 Aba rded influenza virus vaccine, inactivated 04/13/15 Aba rded influenza virus vaccine, inactivated 02/19/14 Aba rded influenza virus vaccine, inactivated 07/01/13 Aba rded influenza virus vaccine, inactivated 04/29/10 Aba rded hepatitis B adult vaccine 07/29/16 Recorded Meningococcal Conjugate Vaccine 12/31/14 Recorded Meningococcal Conjugate Vaccine 04/29/10 Recorded Hepatitis A Pediatric Vaccine 12/31/14 Recorded Hepatitis A Pediatric Vaccine 05/14/14 Recorded tetanus/diphtheria/pertussis, acel(Tdap) 09/23/13 Recorded Human Papillomavirus Vaccine 03/20/12 Recorded Human Papillomavirus Vaccine 11/07/11 Recorded Human Papillomavirus Vaccine 04/29/10 Recorded tetanus-diphtheria toxoids (Td) 10/06/08 Recorded Varicella Virus Vaccine 02/19/08 Recorded Varicella Virus Vaccine 09/23/99 Recorded Poliovirus Vaccine, Inactivated 11/25/02 Recorded Measles/Mumps/Rubella Virus Vaccine 11/25/02 Recor ded Measles/Mumps/Rubella Virus Vaccine 09/23/99 Recor ded diphtheria/tetanus/pertussis, acel(DTaP) 11/25/02 Recorded diphtheria/tetanus/pertussis, acel(DTaP) 03/22/99 Recorded Diphth/haemophilus/pertussis/tet/polio 02/17/00 Re corded Diphth/haemophilus/pertussis/tet/polio 01/19/99 Re corded Diphth/haemophilus/pertussis/tet/polio 98 Re corded hepatitis B pediatric vaccine 06/21/99 Recorded hepatitis B pediatric vaccine 98 Recorded hepatitis B pediatric vaccine 98 Recorded Medications Benadryl Allergy Sinus 0 Refills, Maintenance, 08/13/14 14:48:35 Start Date: 08/13/14 Status: Ordered Celebrate Vitamin D3 Quick-Melt = 2,000 units, By Mouth, Daily, 0 Refills, Maintenance, 11/19/17 16:52:06 EDT Start Date: 11/19/17 Status: Ordered Fluoxetine By Mouth, 0 Refills, Maintenance, 05/16/18 14:53:23 EST Start Date: 05/16/18 Status: Ordered HydrOXYzine 0 Refills, Maintenance, 05/16/18 14:53:13 EST Start Date: 05/16/18 Status: Ordered Ibuprofen Maintenance, 08/13/14 14:48:14 Start Date: 08/13/14 Status: Ordered Nexium 20 mg oral enteric coated capsule 1 capsule = 20 mg, By Mouth, Daily, # 30 capsule, 0 Refills, Maintenance, 12/12/17 1:08:41 EDT, EC Capsule Start Date: 12/12/17 Status: Ordered Singulair By Mouth, Daily before dinner, 0 Refills, Maintenance, 08/13/14 14:47:59 Start Date: 08/13/14 Status: Ordered Problem List Condition Confirmation Course Effective Dates Status Health St atus Informant Anxiety Confirmed Active Asthma Confirmed Active echogenic intracardiac focus on ultrasound Confirmed Active Hx of migraines Confirmed Active Rubella non-immune status, antepartum Confirmed Active Social History Social History Type Response Smoking Status Never (less than 100 in lifetime) entered on: 09/26/22 Sex Patient Care team information Care Team Personnel Name: Falguni Guadarrama MD Position: [facility] Outreach Member Role: PCP Address: Address: [address] [place] [address] [address] [place] [address]- Care Team Related Persons Name: ROSEMARIE RUTLEDGE Address: home [address] [place] [address] Name: LYN TO Address: home [address] [id number]
--- OUTSIDE RECORDS SUMMARY | 2023-03-20 23:58 | XMS_ITS | Continuity of Care Document ---
Author Name Unknown Organization [facility] Address [address] [place] [id number]- Care Team Providers Care School Resource Officer Name Role Phone Wili Chapa MD, Falguni Wells Primary Care Physici an Encounter [facility] Date(s): 12/12/22 - 01/11/[address] [address]- Allergies, Adverse Reactions, Alerts Substance Reaction Severity [...] Team Personnel Name: Falguni Guadarrama MD Position: [facility] Outreach Member Role: PCP Address: Address: [address] [place] [address] [address] [place] [address]- Care Team Related Persons Name: ROSEMARIE RUTLEDGE Address: [address] [place] [address] Name: LYN TO Address: home [address] [place] [id number]
--- OUTSIDE RECORDS SUMMARY | 2023-03-20 23:58 | XMS_ITS | Continuity of Care Document ---
Author Name Unknown Organization [facility] Address [address] [place] [address]- Care Team Providers Care Sheet Rock Installation Helper Name Role Phone Wili Chapa MD, Falguni Wells Primary Care Physici an [place] [facility] [place] Date[place]s): 10/14/22 - 11/26/[address] [address]- Attending Physician: Not on Staff, Attending MD Referring Physician: Edita Haywood MD Allergies, Adverse Reactions, Alerts Substance Reaction Severity [...] Informant Anxiety Confirmed Active Asthma Confirmed Active Hx of migraines Confirmed Active Rubella non-immune status, antepartum Confirmed Active Social History Social History Type Response Smoking Status Never (less than 100 in lifetime) entered on: 09/26/22 Sex Patient Care team information Care Team Personnel Name: Falguni Guadarrama MD Position: [facility] Outreach Member Role: PCP Address: Address: [address] [place] [address] [address] [place], [place] [address] Care Team Related Persons Name: ROSEMARIE RUTLEDGE Address: [address] [place] [address] Name: LYN TO Address: [address] [place] [address]
--- OUTSIDE RECORDS SUMMARY | 2023-03-20 23:59 | XMS_ITS | Continuity of Care Document ---
Author Name Unknown Organization [facility] Address [address] [place] [address]- Care Team Providers Care Supervisory Training Specialist Name Role Phone Wili Chapa MD, Falguni Wells Primary Care Physici an Encounter [facility] Date(s): 09/26/22 - 11/13/[address] [address]- Attending Physician: Angy Murdock CNM Admitting Physician: Angy Murdock CNM Referring Physician: Not on Staff, Referring MD Allergies, Adverse Reactions, Alerts Substance Reaction [...] Team Personnel Name: Falguni Guadarrama MD Position: [facility] Outreach Member Role: PCP Address: Address: [address] [place] [address] [address] [place] [address]- [place] Care Team Related Persons Name: ROSEMARIE RUTLEDGE Address: [address] [place] [address] Name: LYN TO Address: [address] [place] [address]
--- OUTSIDE RECORDS SUMMARY | 2023-03-20 23:59 | XMS_ITS | Continuity of Care Document ---
Author Name Unknown Organization [facility] Address [address] [place] [address]- Care Team Providers Care Curtain Framer Name Role Phone Wili Chapa MD, Falguni Wells Primary Care Physici an Encounter [facility] Date(s): 12/02/22 - 01/01/23 [facility] [address] [address]- Attending Physician: AdmRobert castle Admitting Physician: AdmtrRobert Referring Physician: Admtr, Ar8 Allergies, Adverse Reactions, Alerts Substance Reaction Severity [...] Team Personnel Name: Falguni Guadarrama MD Position: [facility] Outreach Member Role: PCP Address: Address: [address] [place] [address] [address] [place] [address]- [place] Care Team Related Persons Name: ROSEMARIE RUTLEDGE Address: [address] [place] [address] Name: LYN TO Address: [address] [place] [address]
--- OUTSIDE RECORDS SUMMARY | 2023-03-20 23:59 | XMS_ITS | Continuity of Care Document ---
Author Name Unknown Organization [facility] Address [address] [place] [address]- Care Team Providers Care Telehealth Coordinator Name Role Phone Wili Chapa MD, Falguni Wells Primary Care Physici [facility]): [facility]23 - 02/08/[address] [address]- Attending Physician: Not on Staff, Attending MD Allergies, Adverse Reactions, Alerts Substance Reaction [...] 16:52:06 EDT Start Date: 11/19/17 Status: Ordered famotidine 10 mg oral tablet 1 tablet = 10 mg, By Mouth, 2 times a day, # 60 tablet, 0 Refills, Maintenance, 01/12/23 23:38:00 EDT, Tablet, [facility], Partial fill upon patient request if the prescription isfor a schedule II opioid drug. Start Date: 01/12/23 Status: Ordered pyridoxine 25 mg oral tablet 1 tablet = 25 mg, By Mouth, 3 times a day, PRN Nausea & Vomiting, for 30 days, # 100 tablet, 8 Refills, Acute 10/09/23 23:37:00 EDT, 01/12/23 23:37:00 EDT, Tablet, [facility],Partial fill upon patient request if the prescription i... Start Date: 01/12/23 Stop Date: 10/09/23 Status: Ordered Singulair By Mouth, Daily before dinner, 0 Refills, Maintenance, 08/13/14 14:47:59 Start Date: 08/13/14 Status: Ordered Unisom 25 mg oral tablet 1 tablet = 25 mg, By Mouth, Daily, PRN as needed for sleep, for 14 days, 15 to 30 minutes before bed, # 30 tablet, 1 Refills, Acute 02/09/23 23:37:00 EDT, 01/12/23 23:37:00 EDT, Tablet, [facility], Partial fill upon patient request... Start Date: 01/12/23 Stop Date: 02/09/23 Status: Ordered Problem List Condition Confirmation Course [...] Care team information Care Team Personnel Name: Wili Chapa MD, Falguni Wells Position: [facility] Outreach Member Role: PCP Address: Address: [address] [place] [address] [address] [place] [address]- Care Team Related Persons Name: ROSEMARIE RUTLEDGE Address: home [address] [place] [address] Name: LYN TO Address: home [address] [place] [address]
--- OUTSIDE RECORDS SUMMARY | 2023-03-20 23:59 | XMS_ITS | Continuity of Care Document ---
Author Name Unknown Organization [facility] Address [address] [place] [address]- Care Team Providers Care Plate Painter Apprentice Name Role Phone Wili Chapa MD, Falguni Wells Primary Care Physici an [facility] Date[facility]s): 09/21/22 - 10/21/[address] [address]- Allergies, Adverse Reactions, Alerts Substance Reaction Severity [...] EC Capsule Start Date: 12/12/17 Status: Ordered pyridoxine 25 mg oral tablet 1 tablet = 25 mg, By Mouth, 3 times a day, PRN Nausea & Vomiting, # 100 tablet, 8 Refills, Acute 10/29/22 14:37:00 EDT, 09/26/22 14:37:00 EDT, [facility], Partial fill upon patient request if the prescription is for a schedule II o... Start Date: 09/26/22 Stop Date: 10/29/22 Status: Ordered Singulair By Mouth, Daily before dinner, 0 Refills, Maintenance, 08/13/14 14:47:59 Start Date: 08/13/14 Status: Ordered Unisom 25 mg oral tablet 1 tablet = 25 mg, By Mouth, Daily at bedtime, PRN for sleep, # 32 tablet, 0 Refills, Acute 10/27/2313:37:00 EDT, 09/26/22 14:37:00 EDT, Tablet, [facility], Partial fill upon patient request if the prescription is for a schedule II... Start Date: 09/26/22 Stop Date: 10/27/22 Status: Ordered Problem List Condition Confirmation Course Effective Dates Status Health St atus Informant Anxiety Confirmed Active Asthma Confirmed Active Migraine Confirmed Active Social History Social History Type Response Smoking Status Never (less than 100 in lifetime) entered on: 09/26/22 Sex Patient Care team information Care Team Personnel Name: Wili Chapa MD, Falguni Wells Position: [facility] Outreach Member Role: PCP Address: Address: [address] [place] [address] [address] [place] [address]- Care Team Related Persons Name: ROSEMARIE RUTLEDGE Address: home [address] [place] [address] Name: LYN TO Address: home [address] [place] [address]
--- OUTSIDE RECORDS SUMMARY | 2023-03-20 23:59 | XMS_ITS | Continuity of Care Document ---
Author Name Unknown Organization [facility] Address [address] [place] [address]- Care Team Providers Care C 40A Crew Chief Name Role Phone Wili Chapa MD, Falguni Wells Primary Care Physici an [facility] Date[facility]s): 12/19/22 - 01/18/[address] [address]- Allergies, Adverse Reactions, Alerts Substance Reaction Severity [...] 0 Refills, Maintenance, 01/12/23 23:38:00 EDT, Tablet, [facility], Partial fill upon patient request if the prescription isfor a schedule II opioid drug. Start Date: 01/12/23 Status: Ordered pyridoxine 25 mg oral tablet 1 tablet = 25 mg, By Mouth, 3 times a day, PRN Nausea & Vomiting, for 30 days, # 100 tablet, 8 Refills, Acute 10/09/23 23:37:00 EDT, 01/12/23 23:37:00 EDT, Tablet, [facility],Partial fill upon patient request if [...] 02/09/23 23:37:00 EDT, 01/12/23 23:37:00 EDT, Tablet, [facility], Partial fill upon patient request... [...] Name: Wili Chapa MD, Falguni Wells Position: [facility] Outreach Member Role: PCP Address: Address: [address] [place] [address] [address] [place] [address]- Care Team Related Persons Name: ROSEMARIE RUTLEDGE Address: home [address] [place] [address] Name: LYN TO Address: home [address] [place] [address]
--- OUTSIDE RECORDS SUMMARY | 2023-03-20 23:59 | XMS_ITS | Continuity of Care Document ---
Author Name Unknown Organization [facility] Address [address] [place] [address]- Care Team Providers Care Wash House Worker Name Role Phone Wili Chapa MD, Falguni Wells Primary Care Physici an Encounter [facility] Date(s): 01/09/23 - 02/11/[address] [address]- Attending Physician: Not on Staff, Attending MD Referring Physician: Wili Chapa MD, Falguni Wells Allergies, Adverse Reactions, Alerts Substance Reaction Severity [...] 0 Refills, Maintenance, 01/12/23 23:38:00 EDT, Tablet, [facility], Partial fill upon patient request if the prescription isfor a schedule II opioid drug. Start Date: 01/12/23 Status: Ordered pyridoxine 25 mg oral tablet 1 tablet = 25 mg, By Mouth, 3 times a day, PRN Nausea & Vomiting, for 30 days, # 100 tablet, 8 Refills, Acute 10/09/23 23:37:00 EDT, 01/12/23 23:37:00 EDT, Tablet, [facility],Partial fill upon patient request if the [...] Team Personnel Name: Falguni Guadarrama MD Position: [facility] Outreach Member Role: PCP Address: Address: [address] [facility] [address] [place] [address]- Care Team Related Persons Name: ROSEMARIE RUTLEDGE Address: home [address] [place] [address] Name: LYN TO Address: [address] [place] [address]
--- OUTSIDE RECORDS SUMMARY | 2023-03-20 23:59 | XMS_ITS | Continuity of Care Document ---
Author Name Unknown Organization [facility] Address [address] [place] [address]- Care Team Providers Care Material Handling Supervisor Name Role Phone Wili Chapa MD, Falguni Wells Primary Care Physici an Encounter [facility] Date(s): 11/02/22 - 12/31/[address] [address]- Attending Physician: Not on Staff, Attending MD [...] Team Personnel Name: Falguni Guadarrama MD Position: [facility] Outreach Member Role: PCP Address: Address: [address] [place] [address] [address] [place], [place] [address] Care Team Related Persons Name: ROSEMARIE RUTLEDGE Address: [address] [place] [address] Name: LYN TO Address: [address] [place] [address]
--- OUTSIDE RECORDS SUMMARY | 2023-03-20 23:59 | XMS_ITS | Continuity of Care Document ---
Author Name Unknown Organization [facility] Address [address] [place] [address]- Care Team Providers Care Middleware Administrator Name Role Phone Wili Chapa MD, Falguni Wells Primary Care Physici an Encounter [facility] Date(s): 10/27/22 - 11/26/[address] [address]- Allergies, Adverse Reactions, Alerts Substance Reaction Severity [...] Team Personnel Name: Falguni Guadarrama MD Position: [facility] Outreach Member Role: PCP Address: Address: [address] [place] [address] [address] [place] [address]- Care Team Related Persons Name: ROSEMARIE RUTLEDGE Address: home [address] [place] [address] Name: LYN TO Address: home [address] [place] [address]
--- OUTSIDE RECORDS SUMMARY | 2023-03-20 23:59 | XMS_ITS | Continuity of Care Document ---
Author Name Unknown Organization [facility] Address [address] [place] [address]- Care Team Providers Care Water Technician Name Role Phone Wili Chapa MD, Falguni Wells Primary Care Physici [facility] Date[facility]s): 01/04/23 - 02/03/[address] [address]- Allergies, Adverse Reactions, Alerts Substance Reaction Severity [...] 0 Refills, Maintenance, 01/12/23 23:38:00 EDT, Tablet, [facility], Partial fill upon patient request if the prescription isfor a schedule II opioid drug. Start Date: 01/12/23 Status: Ordered pyridoxine 25 mg oral tablet 1 tablet = 25 mg, By Mouth, 3 times a day, PRN Nausea & Vomiting, for 30 days, # 100 tablet, 8 Refills, Acute 10/09/23 23:37:00 EDT, 01/12/23 23:37:00 EDT, Tablet, [facility],Partial fill upon patient request if the [...] 02/09/23 23:37:00 EDT, 01/12/23 23:37:00 EDT, Tablet, [facility], Partial fill upon patient request... Start [...] Name: Wili Chapa MD, Falguni Wells Position: [facility] Outreach Member Role: PCP Address: Address: [address] [place] [address] [address] [place] [address]- Care Team Related Persons Name: ROSEMARIE RUTLEDGE Address: home [address] [place] [address] Name: LYN TO Address: [address] [place] [address]
--- OUTSIDE RECORDS SUMMARY | 2023-03-20 23:59 | XMS_ITS | Continuity of Care Document ---
Author Name Unknown Organization [facility] Address [address] [place] [address]- Care Team Providers Care Roof Truss Machine Tender Name Role Phone Wili Chapa MD, Falguni Wells Primary Care Physici an [facility] Date[facility]s): 12/08/22 - 01/07/23 [facility] [address] [place] [address] Attending Physician: AdmRobert castle Admitting Physician: Admtr, Ar8 Referring Physician: Admtr, Ar8 Allergies, Adverse Reactions, [...] Team Personnel Name: Falguni Guadarrama MD Position: [facility] Outreach Member Role: PCP Address: Address: [address] [place] [address] [address] [place] [address]- Care Team Related Persons Name: ROSEMARIE RUTLEDGE Address: [address] [place] [address] Name: LYN TO Address: home [address] [place] [address]
--- OUTSIDE RECORDS SUMMARY | 2023-03-20 23:59 | XMS_ITS | Continuity of Care Document ---
Author Name Unknown Organization [facility] Address [address] [place] [address]- Care Team Providers Care Pugger Helper Name Role Phone Azael Carbajal MD Primary Care Physician Encounter [facility] Date(s): 03/13/20 - 03/13/[address] [address]- [facility] Discharge Disposition: A-D/C Walkout Attending Physician: Not on Staff, Attending MD Admitting Physician: Not on Staff, Admitting MD Referring Physician: Not on Staff, Referring MD Allergies, Adverse Reactions, Alerts Substance Reaction Severity Status Peanuts Active Seafood Persistent Severe Active Medications Benadryl Allergy Sinus 0 Refills, Maintenance, [...] Date: 08/13/14 Status: Ordered Problem List Condition Effective Dates Status Health Status Inform ant Asthma(Confirmed) Active Results Orders for Microbiology Reports Name Date Group A Strep Screen and Culture 0 Microbiology Reports TEST:Group A Strep Screen and Culture STATUS:Unauthenticated BODY SITE: SOURCE:THROAT COLLECTED DATE/TIME:03/13/20 2:40 PM Group A Strep Screen and Culture SPECIMEN DESCRIPTION : THROAT SWAB SPECIAL REQUESTS : NONE DIRECT EXAM : RAPID GROUP A RESULT IS NEGATIVE, REFER TO CULTURE RESULT. REPORT STATUS : PRELIMINARY REPORT Vital Signs Most recent to oldest [Reference Range]: 1 2 Oxygen Saturation [94-100 %] 99 % (03/13/20 3:36 PM) 100 % (03/13/20 2:18 PM) Pulse Rate [55-90 bpm] 130 bpm *H* (03/13/20 3:36 PM) 140 bpm *H* (03/13/20 2:18 PM) Blood Pressure [90-138/55-84 mm Hg] 112/ 64mm Hg (03/13/20 3:36 PM) Respiratory Rate [16-30 br/min] 24 br/mi n (03/13/20 3:36 PM) 18 br/min (03/13/20 2:18 PM) Temperature [96.8-100.4 DegF] 99.2 DegF (03/13/20 3:36 PM) Liters per Minute 0 L/min (03/13/20 3:36 PM) Mode of Delivery (Oxygen) Room air (03/13/20 3:36 PM) Room air (03/13/20 2:18 PM) Blood pressure sites Arm, left (03/13/20 3:36 PM) Temperature Route Oral (03/13/20 3:36 PM) Social History Social History Type Response Smoking Status Never smoker entered on: 08/13/14 Sex
--- OUTSIDE RECORDS SUMMARY | 2023-03-20 23:59 | XMS_ITS | Continuity of Care Document ---
Author Name Unknown Organization [facility] Address [address] [place] [address]- Care Team Providers Care Certified Pest Control Technician Name Role Phone Wili Chapa MD, Falguni Wells Primary Care Physici an [facility]s): 12/12/22 - 01/11/23 [facility] [address] [place] [address] Allergies, Adverse Reactions, Alerts Substance Reaction Severity [...] Team Personnel Name: Falguni Guadarrama MD Position: [facility] Outreach Member Role: PCP Address: Address: [address] [place] [address] [address] [place] [address]- Care Team Related Persons Name: ROSEMARIE RUTLEDGE Address: home [address] [place] [address] Name: LYN TO Address: [address] [place] [address]
--- OUTSIDE RECORDS SUMMARY | 2023-03-20 23:59 | XMS_ITS | Continuity of Care Document ---
Author Name Unknown Organization [facility] Address [address] [place] [address]- Care Team Providers Care Director Hematology Name Role Phone Wili Chapa MD, Falguni Wells Primary Care Physici an [place] [facility] [place] Date(s): 09/26/22 - 10/28/[address] [address]- Attending Physician: Adrienne Camacho DO Admitting Physician: Adrienne Camacho DO Referring Physician: Indira MARQUEZ, MEDIA DEVELOPER, Lindsay Vázquez Allergies, Adverse Reactions, Alerts Substance Reaction Severity [...] Acute 10/29/22 14:37:00 EDT, 09/26/22 14:37:00 EDT, [facility], Partial fill upon patient request if the prescription is for a schedule II o... Start Date: 09/26/22 Stop Date: 10/29/22 Status: Ordered Singulair By Mouth, Daily before dinner, 0 Refills, Maintenance, 08/13/14 14:47:59 Start Date: 08/13/14 Status: Ordered Problem List Condition Confirmation Course Effective Dates Status Health St atus Informant Anxiety Confirmed Active Asthma Confirmed Active Hx of migraines Confirmed Active Social History Social History Type Response Smoking Status Never (less than 100 in lifetime) entered on: 09/26/22 Sex Patient Care team information Care Team Personnel Name: Falguni Guadarrama MD Position: [facility] Outreach Member Role: PCP Address: Address: [address] [place] [address] [address] [place] [address]- Care Team Related Persons Name: ROSEMARIE RUTLEDGE Address: [address] [place] [address] Name: LYN TO Address: [address] [place] [address]
--- OUTSIDE RECORDS SUMMARY | 2023-03-20 23:59 | XMS_ITS | Continuity of Care Document ---
Author Name Unknown Organization [facility] Address [address] [place] [address]- Care Team Providers Care Heel Scourer Name Role Phone Wili Chapa MD, Falguni Wells Primary Care Physici an [facility] Date[facility]s): 11/04/22 - 12/04/[address] [address]- Allergies, Adverse Reactions, Alerts Substance Reaction Severity [...] Team Personnel Name: Falguni Guadarrama MD Position: [facility] Outreach Member Role: PCP Address: Address: [address] [place] [address] [address] [place] [address]- Care Team Related Persons Name: ROSEMARIE RUTLEDGE Address: [address] [place] [address] Name: LYN TO Address: home [address] [place] [address]
--- OUTSIDE RECORDS SUMMARY | 2023-03-20 23:59 | XMS_ITS | Continuity of Care Document ---
Author Name Unknown Organization [facility] Kaya Cummins n[facility] Address [address] [facility] [place] [address]- Care Team Providers Care Full Charge Bookkeeper Name Role Phone Wili Chapa MD, Falguni Wells Primary Care Physici an Encounter [facility] Date(s): 11/30/22 - 12/30/22 [facility] [employer] [employer] [facility] [address] [facility], 4th [place] [address]- Allergies, Adverse Reactions, Alerts Substance Reaction Severity [...] Name: Falguni Guadarrama MD Position: [facility] Outreach Member Role: PCP Address: Address: [address] [place] [address] [address] [place] [address]- Care Team Related Persons Name: ROSEMARIE RUTLEDGE Address: [address] [place] [address] Name: LYN TO Address: home [address] [place], [place] [address]
--- NOTE | 2023-03-21 00:25 | PC.NURSE ---
HR 142
--- NOTE | 2023-03-21 00:26 | PC.NURSE ---
due date 04/27/23 - this is pt's second . first vaginal. pt reports having abdominal pain/cramping and feeling wetness in pants since 10pm as if her water broke. contractions currently lasting approx 30 seconds and was about 7 mins apart.
--- NOTE | 2023-03-21 00:28 | PC.NURSE ---
MD harris performing bedside ultrasound/ pelvic exam.
--- NOTE | 2023-03-21 00:30 | ED_ITS ---
HPI - General Chief complaint: OB Stated complaint: 8 Months pegnant/Abd pain/?Water brake Time Seen by Provider: 03/21/23 00:22 Source: patient Mode of arrival: ambulatory Limitations: no limitations History of Present Illness HPI Narrative: patient is 32 weeks with normal care at [facility], comes in for abdominal contractions since 22:00 lasting for 30 seconds to 1 minute happening every 5-7 minutes prior to that patient had small amount of fluid discharge from vagina no bleeding. patient's blood type is O-positive Related Data Previous Rx's Medication Instructions Recorded acetaminophen 300 mg-codeine 30 mg 1 tab PO Q8H PRN pain #10 tabs 03/12/20 tablet amoxicillin 875 mg-potassium 1 tab PO BID pharyngitis 10 days 03/12/20 clavulanate 125 mg tablet #20 tabs (Augmentin) dexamethasone 6 mg tablet 6 mg PO ONCE inflammation #1 tab 03/12/20 (Decadron) doxylamine 10 mg-pyridoxine (vit 1 tab PO BID #30 tabs 03/16/20 B6) 10 mg tablet,delayed release (Diclegis) ondansetron HCl 4 mg tablet 4 mg PO Q8H PRN nausea and 03/16/20 (Zofran) vomiting #20 tabs vitamin with calcium 1 tab PO DAILY 30 days #30 tabs 04/02/20 no.72-iron 27 mg-folic acid 1 mg tablet ( Vitamins Plus Low Iron) doxycycline monohydrate 100 mg 100 mg PO BID #14 caps 04/23/20 capsule ondansetron 4 mg disintegrating 4 mg PO Q6-8H PRN nausea and 10/01/21 tablet vomiting #7 tabs tramadol 50 mg tablet 50 mg PO Q6H PRN pain #20 tabs 10/01/21 Allergies Allergy/AdvReac Type Severity Reaction Status Date / Time PEANUT BUTTER Allergy Intermediate RASH Uncoded 04/23/20 00:19 SEAFOOD AdvReac Severe Anaphylaxis Uncoded 04/23/20 00:19 Review of Systems Review of Systems: Yes all other systems are reviewed and are negative PMFSH Past Medical History Medical History Anxiety Asthma Social History Social History Alcohol intake: never Patient Tobacco Use Status: Never used Tobacco Advance Directives: No Advance Directives Information Provided: No Physical Exam Vital Signs: Vital Signs: Last Vital Signs Temp 98.1 F 03/20/23 23:47 Pulse 112 H 03/21/23 00:40 Resp 16 03/21/23 00:40 BP 111/77 03/21/23 00:40 Pulse Ox 98 03/21/23 00:40 O2 Del Method Room Air 03/21/23 00:40 BMI result Body Mass Index 26.5 Appearance: Alert. Oriented X3. in mild discomfort Eyes: no pallor or icterus ENT: Pharynx normal. Oral Mucosa moist Neck: Normal inspection. Neck supple. CVS: Normal heart rate and rhythm. Pulses normal. Respiratory: No respiratory distress. Equal air entry bilateral, no wheezing/rales/rhonchi Abdomen: gravid uterus heart tones 145 beats per minute. cephalic presentation pelvis: posteriorly located 1 cm dilated no mucus or blood on the finger Skin: Skin warm and dry. Normal skin color. Normal skin turgor. Extremities: No lower extremity edema. No calf tenderness Neuro: Oriented X 3. Medications Administered Discontinued Medications Generic Name Dose Route Start Last Admin Trade Name Freq PRN Reason Stop Dose Admin Sodium Chloride 1,000 mls @ 999 mls/hr 03/21/23 00:40 03/21/23 00:45 Ns IV 03/21/23 01:40 999 mls/hr .Q1H1M ONE Administration Medical Decision Making Medical Decision Making [facility] Narrative: patient is 32 weeks preg SHIVAM 04/27/2023 cephalic presentation heart sound 145 having contractions for last 1 hour lasting for 30 seconds to 1 minute happening every 5-6 minute pelvic exam revealed 1 cm still located , -2 station but patient still having contraction will send her to [facility] for OB care is degree Dr. Flores at [facility] with the patient in [facility] evaluation 0144 patient now feeling better having less frequent contractions, last contraction was about 10 minutes ago patient refused to take the ambulance signed against medical advice will go to [facility] in private car Discharge Plan Discharge Clinical Impression: Premature labor Patient Disposition: Left Against Medical Advice Prescriptions: No Action amoxicillin-pot clavulanate [Augmentin] 875-125 mg tablet 1 tab PO BID 10 Days Qty: 20 0RF dexamethasone [Decadron] 6 mg tablet 6 mg PO ONCE Qty: 1 0RF acetaminophen-codeine 300-30 mg tablet 1 tab PO Q8H PRN (Reason: pain) Qty: 10 0RF doxylamine-pyridoxine (vit B6) [Diclegis] 10-10 mg tablet,delayed release (DR/EC) 1 tab PO BID Qty: 30 0RF ondansetron HCl [Zofran] 4 mg tablet 4 mg PO Q8H PRN (Reason: nausea and vomiting) Qty: 20 0RF doxycycline monohydrate 100 mg capsule 100 mg PO BID Qty: 14 0RF tramadol 50 mg tablet 50 mg PO Q6H PRN (Reason: pain) Qty: 20 0RF ondansetron 4 mg tablet,disintegrating 4 mg PO Q6-8H PRN (Reason: nausea and vomiting) Qty: 7 0RF Vitamin Plus Low Iron 27 mg iron- 1 mg tablet 1 tab PO DAILY 30 Days Qty: 30 11RF Rx Instructions: give with food (meal/snack) Stand Alone Forms: Against Medical Advice
[2023-03-21 00:40] VITALS: BP 111/77; PULSE 112; RESP 16; O2SAT 98
--- NOTE | 2023-03-21 00:41 | PC.NURSE ---
contractions approx 2-3 minutes apart lasting less than 1 minute. iv established.
[2023-03-21] MEDS: 0.9 % Sodium Chloride 1,000 ML 999 ML IV (00:45)
--- NOTE | 2023-03-21 01:08 | PC.NURSE ---
ivf infusing. pt states she has not had any pain/contractions since last 1233. pt ambulatory to bathroom.
--- NOTE | 2023-03-21 01:25 | PC.NURSE ---
babys heart rate 137 via doppler. pt denies any pain/cramping.
--- NOTE | 2023-03-21 06:41 | MHC.EDTECH ---
call out to [facility] transfer line at 0030 for possible transfer
--- NOTE | 2023-03-21 06:43 | MHC.EDTECH ---
[facility] called back at 0052 to accept transfer to [facility]
--- NOTE | 2023-03-21 06:45 | MHC.EDTECH ---
call out to pamela at 0113 too book transport for pt.
--- NOTE | 2023-03-21 06:46 | MHC.EDTECH ---
Transport from [place] was cancelled at 0142, Pt refused to travel by ambulance to [facility]. Pt left against Medical Advice
== END 2023-03-21 01:59 | disposition left against medical advice (07) ==
PROVIDERS: Emergency Provider Internal Medicine
DX: O26.93 Pregnancy related conditions, unspecified, third trimester (principal); Z3A.32 32 weeks gestation of pregnancy
CPT/HCPCS: 99283; 99284

== ENCOUNTER 2023-11-06 09:15 | Emergency (ER) | payer MEDICAID, SELFPAY ==
[2023-11-06 09:28] VITALS: BP 102/59; PULSE 113; RESP 16; TEMP 37.2; O2SAT 97; BMI 23.6
[2023-11-06 10:03] LABS: IDNOW Serial# 08D9AD1C
[2023-11-06 10:04] LABS: Strep A Nucleic Acid Positive (Negative)
[2023-11-06 10:36] LABS: Influenza A PCR NEGATIVE (Negative); Influenza B PCR NEGATIVE (Negative); Resp Syncy Virus RNA Qual PCR NEGATIVE (Negative); SARS COV2 PCR INHOUSE NEGATIVE (Negative)
[2023-11-06 11:38] VITALS: BP 107/72; PULSE 110; TEMP 37.1; O2SAT 98
--- NOTE | 2023-11-06 11:41 | ED_ITS ---
HPI - URI/Sore Throat General Chief Complaint: Upper Respiratory Symptoms Stated Complaint: Sore throat//Neck pain/Lightheaded Time Seen by Provider: 11/06/23 11:41 Source: patient, RN notes reviewed and old records reviewed Mode of arrival: ambulatory Limitations: no limitations History of Present Illness ED Provider: SUBHASH LEYVA PA-C HPI Narrative: 23 year old female with past medical history significant for recurrent tonsillitis presents to the emergency department today for evaluation of sore throat, sinus congestion and odynophagia x2 days. Normal PO intake at home however admits to pain with swallowing. Reports she was supposed to have her tonsils arrived at some point however declined. Denies known sick contacts. Denies fever, chills, nausea or vomiting, abdominal pain, cough, sputum production, dysphagia, rashes. MD elicited complaint: sore throat Related Data Previous Rx's ?Medication ?Instructions ?Recorded acetaminophen 300 mg-codeine 30 mg 1 tab PO Q8H PRN pain #10 tabs 03/12/20 tablet amoxicillin 875 mg-potassium 1 tab PO BID pharyngitis 10 days 03/12/20 clavulanate 125 mg tablet #20 tabs (Augmentin) dexamethasone 6 mg tablet 6 mg PO ONCE inflammation #1 tab 03/12/20 (Decadron) doxylamine 10 mg-pyridoxine (vit 1 tab PO BID #30 tabs 03/16/20 B6) 10 mg tablet,delayed release (Diclegis) ondansetron HCl 4 mg tablet 4 mg PO Q8H PRN nausea and 03/16/20 (Zofran) vomiting #20 tabs vitamin with calcium 1 tab PO DAILY 30 days #30 tabs 04/02/20 no.72-iron 27 mg-folic acid 1 mg tablet ( Vitamins Plus Low Iron) doxycycline monohydrate 100 mg 100 mg PO BID #14 caps 04/23/20 capsule ondansetron 4 mg disintegrating 4 mg PO Q6-8H PRN nausea and 10/01/21 tablet vomiting #7 tabs tramadol 50 mg tablet 50 mg PO Q6H PRN pain #20 tabs 10/01/21 benzocaine 15 mg-menthol 2.6 mg 1 cleopatra mucous membrane Q2-4H PRN 11/06/23 lozenges (Cepacol Sore Throat sore throat #16 ea (benzocaine-menthol)) penicillin V potassium 500 mg 500 mg PO BID 10 days #20 tabs 11/06/23 tablet prednisone 20 mg tablet 40 mg (2 x 20 mg) PO DAILY 4 days 11/06/23 #8 tabs Allergies Allergy/AdvReac Type Severity Reaction Status Date / Time PEANUT BUTTER Allergy Intermediate RASH Uncoded 11/06/23 09:31 SEAFOOD AdvReac Severe Anaphylaxis Uncoded 11/06/23 09:31 Review of Systems Review of Systems: Constitutional: No fever, chills, fatigue, night sweats, weight changes ENT/Mouth: No ear pain, hearing loss, nasal congestion, sinus pain, rhinorrhea, +sore throat, +odynophagia, No dysphagia Eyes: No eye pain, swelling, redness, vision changes, discharge Cardio: No chest pain, palpitations, PALOMO, orthopnea, peripheral edema Pulm: No SOB, cough, sputum, wheezing, dyspnea, hemoptysis GI: No nausea, vomiting, hematemesis, abdominal pain, diarrhea, constipation, hematochezia, melena : No irregular bleeding, dysuria, frequency, urgency, hesitancy, hematuria, flank pain MSK: No back pain, neck pain, joint pain, myalgias Skin: No lesions, rashes Neuro: No weakness, numbness, paresthesias, LOC, dizziness, headache All other systems reviewed and are negative. [facility] Past Medical History Attestation statement: The following information was validated with the patient. Source: old records reviewed and nursing notes reviewed Medical History Anxiety Asthma Social History Social History Alcohol intake: never Patient Tobacco Use Status: Never used Tobacco Advance Directives: No Advance Directives Information Provided: Yes Do you have a plan to hurt others: No Plan Physical Exam Vital Signs: Vital Signs: Last Vital Signs Temp 98.7 F 11/06/23 12:09 Pulse 101 H 11/06/23 12:09 Resp 16 11/06/23 12:09 BP 104/77 11/06/23 12:09 Pulse Ox 98 11/06/23 12:09 O2 Del Method Room Air 06/10/24 12:09 BMI result Body Mass Index 23.6 Slightly tachycardic Const: General: cooperative, healthy appearing, comfortable and no acute dist ress Orientation/consciousness: patient oriented x3 Limitations: no limitations HEENT: Other: + Posterior oropharynx erythematous, the re is bilateral tonsillar edema (L>R), no tonsillar exudates or peritonsillar masses. Uvula is midline. Controlling secretions and speaking in complete sentences. No stridor. Airway patent. No cervical lymphadenopathy or palpable masses. No anterior neck swelling. Head: Yes normal to inspection, Yes No palpable skull fracture present, Yes normocephalic and Yes atraumatic Ears: hearing grossly normal bilaterally, external ears normal, TM's normal bilaterally, EAC's normal, mastoids normal and no periauricular adenopathy General nose exam: Normal external nose present and No nasal discharge present Face and sinus: Yes normal facial exam and Yes sinuses nontender Eyes: General: appearance normal, both eyes and all related structures Pupils: Equal, round and reactive pupils present Neck: Neck: Yes normal visual inspection, Yes full ROM, Yes no lymphadenopathy and Yes no meningeal signs Resp: Effort & Inspection: normal respiratory effort, able to speak in complete sentences, no cough and no stridor Auscultation: clear to auscultation bilaterally Cardio: Rate: regular rate Rhythm: regular rhythm GI: Inspection: Yes normal to inspection Palpation (GI): Soft to palpation, nontender and no splenomegaly Skin: General skin exam: no rashes or lesions noted Neuro: General: patient oriented x3, gait normal, moves all extremities and no meningeal signs Cranial nerves: Yes Equal, round and reactive pupils present Extrem: General: Yes normal to inspection Course Course Course Narrative: 1153-- patient has tested positive for strep throat. She tested negative for COVID, flu, RSV. 10 of Decadron given in the ED. I do not have concern for acute airway compromise at this time. She is controlling secretions, speaking in full complete sentences. She has not hypoxic. Will send her home with a course prednisone along with penicillin to treat for strep throat. Cepacol throat lozenges sent as well. tolerating PO in ED. Patient has remained stable throughout ED visit today. Discussed worrisome signs and symptoms and when to return to the ED. All questions answered at this time. Patient is agreeable with disposition and stable for discharge. Medications Administered Discontinued Medications Generic Name Dose Route Start Last Admin Trade Name Gayle PRN Reason Stop Dose Admin Dexamethasone Sodium Phosphate 10 mg 11/06/23 11:45 11/06/23 11:53 Dexamethasone Sod Phosphate 10 Mg/Ml Vial IVPUSH 11/06/23 11:46 10 mg ONCE ONE Administration Medical Decision Making Medical Decision Making [facility] Narrative: 23 year old female with past medical history significant for recurrent tonsillitis presents to the emergency department today for evaluation of sore throat, sinus congestion and odynophagia x2 days. Patient noted to be tachycardic to 110. Initially with low-grade fever at 99. Tachycardia likely secondary to fever. Vitals otherwise WNL. Not hypoxic. Posterior oropharynx erythematous, there is bilateral tonsillar edema (L>R), no tonsillar exudates or peritonsillar masses. Uvula is midline. Controlling secretions and speaking in complete sentences. No stridor. Airway patent. No cervical lymphadenopathy or palpable masses. No anterior neck swelling. No rashes. Skin warm, dry, intact. Bilateral EACs. Differential diagnosis includes viral syndrome, strep throat. Unlikely mono, DYE TUB TENDER, retropharyngeal abscess, dental abscess, epiglottitis, pneumonia, Syed's angina. Plan for viral and strep swab, steroids, re-evaluation. Differential Diagnosis Differential Diagnoses: The differential diagnosis associated with the presentation includes as above. Admission/Observation Not indicated Lab Data [facility] Lab Attestation statement: I reviewed the patient's lab results. as above Labs: Lab Results 11/06/23 Range/Units 09:39 Influenza Type A (PCR) NEGATIVE (Negative) Influenza Type B (PCR) NEGATIVE (Negative) RSV RNA Qual (PCR) NEGATIVE (Negative) SARS-CoV-2 RNA (RT-PCR) NEGATIVE (Negative) S. pyogenes GrpA CHRISTEN Positive A (Negative) External Record Review External record reviewed: Inpatient record Prescription Management I considered prescription management with: Pain Medication (Cepacol throat lozenges) and Antibiotic (Penicillin) Chronic Conditions Patient?s care impacted by: Other (Recurrent tonsillitis) Social Determinants Patient?s care significantly limited by Social Determinants of Health including: Other Social Determinant of Health Critical Care Time Critical Care Time Critical Care Time: No Discharge Plan Discharge Clinical Impression: Acute streptococcal pharyngitis Patient Disposition: Home, Self-Care Instructions: Pharyngitis (ED), Strep Throat (DC) Additional Instructions: You were seen in the ED today for evaluation of sore throat. You tested negative for covid and influenza. You tested positive for strep throat. Penicillin is an antibiotic that has been sent to your pharmacy. Take this twice daily for the next 10 days to treat strep throat. Do not stop taking these antibiotics early or miss any doses as this may cause infection to return or worsen. Prednisone as a steroid that has been sent to your pharmacy. You were given a steroid in the ED today. Begin taking prednisone tomorrow and take this for 4 days to help with tonsillar swelling. Cepacol throat lozenges have been sent to your pharmacy to help with throat pain. You may also purchase [id number] chloraseptic spray to numb your throat. Take Tylenol and ibuprofen as needed for body aches or fevers. Make sure to change your toothbrush as this contains bacteria. Strep throat is contagious. If anyone else in your household is exhibiting symptoms, please advise them to come to the ED, urgent care, or to see their primary care provider. Follow up with your primary care provider as needed. Return to the emergency department if your symptoms persist or worsen despite treatment or if you have difficulty swallowing, opening your mouth, or develop a rash. In the case of emergency, call 911.? Prescriptions: New prednisone 20 mg tablet 40 mg PO DAILY 4 Days Qty: 8 0RF penicillin V potassium 500 mg tablet 500 mg PO BID 10 Days Qty: 20 0RF Cepacol Sore Throat (lisste-men) 15-2.6 mg lozenge 1 cleopatra mucous membrane Q2-4H PRN (Reason: sore throat) Qty: 16 0RF No Action amoxicillin-pot clavulanate [Augmentin] 875-125 mg tablet 1 tab PO BID 10 Days Qty: 20 0RF dexamethasone [Decadron] 6 mg tablet 6 mg PO ONCE Qty: 1 0RF acetaminophen-codeine 300-30 mg tablet 1 tab PO Q8H PRN (Reason: pain) Qty: 10 0RF doxylamine-pyridoxine (vit B6) [Diclegis] 10-10 mg tablet,delayed release (DR/EC) 1 tab PO BID Qty: 30 0RF ondansetron HCl [Zofran] 4 mg tablet 4 mg PO Q8H PRN (Reason: nausea and vomiting) Qty: 20 0RF doxycycline monohydrate 100 mg capsule 100 mg PO BID Qty: 14 0RF tramadol 50 mg tablet 50 mg PO Q6H PRN (Reason: pain) Qty: 20 0RF ondansetron 4 mg tablet,disintegrating 4 mg PO Q6-8H PRN (Reason: nausea and vomiting) Qty: 7 0RF Vitamin Plus Low Iron 27 mg iron- 1 mg tablet 1 tab PO DAILY 30 Days Qty: 30 11RF Rx Instructions: give with food (meal/snack) Referrals: Falguni Guadarrama MD [Primary Care Provider] - Stand Alone Forms: Work/School Release Interventions: ED Discharge Assessment Last Done: 11/06/23 12:09 Discharge Date/Time: 11/06/23 12:10 Print Language: [place]
[2023-11-06] MEDS: dexAMETHasone sod phosphate 10 MG/ML VIAL IVPUSH (11:53)
--- NOTE | 2023-11-06 11:55 | PC.NURSE ---
pt medicated per order
[2023-11-06 12:09] VITALS: BP 104/77; PULSE 101; RESP 16; TEMP 37.1; O2SAT 98
== END 2023-11-06 12:10 | disposition home or self-care (01) ==
PROVIDERS: Emergency Provider Emergency Medicine; PCP Internal Medicine
DX: J02.0 Streptococcal pharyngitis (principal); J45.909 Unspecified asthma, uncomplicated
CPT/HCPCS: 0241U; 87651; 99283; J1100

== ENCOUNTER 2024-10-17 03:08 | Emergency (ER) | payer MEDICAID, SELFPAY ==
--- NOTE | ~2024-10-17 | XR_ITS ---
CLINICAL HISTORY: r o consolidation vs overlapping shadows 2 view chest x-ray Comparison: CR - XR CHEST 1V - 10/17/24 03:25 EDT Findings: Middle lobe consolidation. No pleural effusion. Heart size is normal. No acute fracture. IMPRESSION: Findings suggesting a middle lobe pneumonia. This document has been electronically signed by: Karis Jara MD on 10/17/2024 05:10:24
--- NOTE | ~2024-10-17 | XR_ITS ---
CLINICAL HISTORY: sob 1 view chest x-ray Comparison: None Findings: Ill-defined opacity at the right lower lung. No pleural effusion. Heart size is normal. No acute fracture. IMPRESSION: Overlapping shadows versus early consolidation in the right lower lung. Follow-up as needed. This document has been electronically signed by: Karis Jara MD on 10/17/2024 04:12:17
[2024-10-17 03:12] VITALS: BP 122/79; BP 126/80; PULSE 156; PULSE 157; RESP 31; TEMP 36.5; O2SAT 90; O2SAT 98; BMI 29.9
--- NOTE | 2024-10-17 03:17 | ED_ITS ---
HPI - Asthma General Chief Complaint: Asthma Stated Complaint: Diff Breathing, Tachy Time Seen by Provider: 10/17/24 03:11 Source: patient and EMS Mode of arrival: EMS Limitations: no limitations History of Present Illness ED Provider: Dr. Shana Mendez HPI Narrative: Patient comes to the emergency room complaining of shortness of breath. Patient states that she went to sleep as usual. In the middle of the night just prior to EMS arrival, patient woke up with significant shortness of breath, wheezing. According to EMS, patient's oxygenation was 90% on room air. Patient was giving an LV size in treatment, patient states that it help. On arrival, patient continues having shortness of breath but states that it is much better than prior to EMS arrival. Patient denies chest pain. Related Data Previous Rx's ?Medication ?Instructions ?Recorded acetaminophen 300 mg-codeine 30 mg 1 tab PO Q8H PRN pain #10 tabs 03/12/20 tablet amoxicillin 875 mg-potassium 1 tab PO BID pharyngitis 10 days 03/12/20 clavulanate 125 mg tablet #20 tabs (Augmentin) dexamethasone 6 mg tablet 6 mg PO ONCE inflammation #1 tab 03/12/20 (Decadron) doxylamine 10 mg-pyridoxine (vit 1 tab PO BID #30 tabs 03/16/20 B6) 10 mg tablet,delayed release (Diclegis) ondansetron HCl 4 mg tablet 4 mg PO Q8H PRN nausea and 03/16/20 (Zofran) vomiting #20 tabs vitamin with calcium 1 tab PO DAILY 30 days #30 tabs 04/02/20 no.72-iron 27 mg-folic acid 1 mg tablet ( Vitamins Plus Low Iron) doxycycline monohydrate 100 mg 100 mg PO BID #14 caps 04/23/20 capsule ondansetron 4 mg disintegrating 4 mg PO Q6-8H PRN nausea and 10/01/21 tablet vomiting #7 tabs tramadol 50 mg tablet 50 mg PO Q6H PRN pain #20 tabs 10/01/21 benzocaine 15 mg-menthol 2.6 mg 1 cleopatra mucous membrane Q2-4H PRN 11/06/23 lozenges (Cepacol Sore Throat sore throat #16 ea (benzocaine-menthol)) penicillin V potassium 500 mg 500 mg PO BID 10 days #20 tabs 11/06/23 tablet prednisone 20 mg tablet 40 mg (2 x 20 mg) PO DAILY 4 days 11/06/23 #8 tabs albuterol sulfate 90 mcg/actuation 2 puff inhalation Q4-6H PRN 10/17/24 aerosol inhaler shortness of breath or wheezing #8.5 grams doxycycline hyclate 100 mg capsule 100 mg PO BID #14 caps 10/17/24 prednisone 50 mg tablet 50 mg PO DAILY #4 tabs 10/17/24 Allergies Allergy/AdvReac Type Severity Reaction Status Date / Time PEANUT BUTTER Allergy Intermediate RASH Uncoded 10/17/24 03:14 SEAFOOD AdvReac Severe Anaphylaxis Uncoded 10/17/24 03:14 Review of Systems 2 Review of Systems: Constitutional : No Weight loss, No Fever, No Chills, No Night Sweats, No Fatigue, No Malaise ENT/Mouth : No Hearing loss, No Ear Pain, No Nasal Congestion, No Sinus Pain, No Hoarseness, No sore throat, No Rhinorrhea, No Swallowing Difficulty Eyes: No Eye Pain, No Swelling, No Redness, No Foreign Body, No Discharge, No Vision Changes Cardiovascular : No Chest Pain, No SOB, No Dyspnea on Exertion, No Orthopnea, No Edema, No Palpitations Respiratory : Complaining of wheezing and shortness of breath Gastrointestinal : No Nausea, No Vomiting, No Diarrhea, No Constipation, No abdominal Pain, No Hematochezia, No Melena Genitourinary : no irregular bleeding, No Dysuria, No Urinary Frequency, No Hematuria, No Urinary Incontinence, No Urgency, No Flank Pain, No Urinary Flow Changes, No Hesitancy Musculoskeletal : No joint pain, No Myalgias, No Joint Swelling Skin : No Skin Lesions, No rash Neuro : No Weakness, No Numbness, No Paresthesias, No Loss of Consciousness, No Dizziness, No Headache Psych : No Anxiety/Panic, No Depression, No SI/HI/AH/VH, No Social Issues, Heme/Lymph: No Bruising, No Bleeding,No Lymphadenopathy Endocrine : No Polyuria, No Polydipsia, No Temperature Intolerance PMF Past Medical History Medical History Anxiety Asthma Social History Social History Alcohol intake: never Patient Tobacco Use Status: Never used Tobacco Smoked in Last 30 Days: No Use of substances other than those prescribed or required for medical reasons: No Advance Directives: No Advance Directives Information Provided: Yes Do you have a plan to hurt others: No Plan Patient : No Physical Exam 2 Vital Signs: Vital Signs: Last Vital Signs Temp 98.3 F 10/17/24 05:27 Pulse 130 H 10/17/24 05:27 Resp 14 10/17/24 05:27 BP 118/76 10/17/24 05:27 Pulse Ox 96 10/17/24 05:27 O2 Del Method Room Air 10/17/24 05:27 BMI result Body Mass Index 29.9 Const: Other: Appearance: Alert. Oriented X3. No acute distress. Eyes: Pupils equal, round and reactive to light. ENT: Pharynx normal. Neck: Normal inspection. Neck supple. No lymph nodes noted. No crepitus CVS: Normal heart rate and rhythm. Pulses normal. Normal S1 and S2 Respiratory: Patient tachypneic, very anxious, very mild occasional wheezing with good air movement Abdomen: Soft and nontender. No rigidity. No distention. Skin: Skin warm and dry. Normal skin color. Normal skin turgor. Extremities: No lower extremity edema. No Lacerations. No Rash Neuro: Oriented X 3. No motor deficit. No sensory deficit. Moving all extremities. No slurred speech. CN 2 through 12 grossly intact Psych: calm, cooperative, normal affect Course Course Course Narrative: Patient receiving IV Solu-Medrol, magnesium and brown protocol Patient's labs and imaging pending Medications Administered Discontinued Medications Generic Name Dose Route Start Last Admin Trade Name Justinq PRN Reason Stop Dose Admin Diphenhydramine HCl 50 mg 10/17/24 03:29 10/17/24 03:30 Diphenhydramine Hcl 50 Mg/Ml Vial IVPUSH 10/17/24 03:30 50 mg ONCE ONE Administration Magnesium Sulfate 2 gm in 50 mls @ 150 mls/hr 10/17/24 03:14 10/17/24 05:27 Magnesium Sulfate/H2o IV 10/17/24 03:33 Infused ONCE ONE Infusion Levalbuterol HCl 1.25 mg 10/17/24 03:20 10/17/24 03:23 Levalbuterol Hcl 1.25 Mg/3 Ml Vial.Neb INHALE 10/17/24 03:21 1.25 mg ONCE ONE Administration Lorazepam 1 mg 10/17/24 03:18 10/17/24 03:30 Lorazepam 1 Mg Tablet PO 10/17/24 03:19 1 mg ONCE ONE Administration Methylprednisolone Sodium Succinate 125 mg 10/17/24 03:14 10/17/24 03:26 Methylprednisolone Sod Succ 125 Mg Vial IVPUSH 10/17/24 03:15 125 mg ONCE ONE Administration Medical Decision Making Medical Decision Making [facility] Narrative: My interpretation of labs: Patient's white blood cell count 13.2, hemoglobin hematocrit at baseline, platelets 456. Venous blood gases do not show any significant abnormality. Chemistry does not show any acute abnormality. Serology negative for influenza RSV and COVID First x-ray shows possible opacity versus pneumonia. Second x-ray confirmed pneumonia. Patient's oxygen saturation is 99% on room air While patient was ambulating in the emergency room, oxygen saturation states steady 97% and above, no chest pain or shortness of breath, no asthma exacerbation HCG negative Differential Diagnosis Differential Diagnoses: The differential diagnosis associated with the presentation includes (Asthma exacerbation, viral URI, pneumonia) Admission/Observation Consideration of admission/observation: Escalation of care including admission/observation considered (Given patient's initial presentation, observation was considered) Lab Data [facility] Lab Attestation statement: I reviewed the patient's lab results. 10/17/24 03:21 10/17/24 03:21 Labs: Lab Results 10/17/24 10/17/24 Range/Units 03:21 03:27 WBC 13.2 H (4.8-10.8) X10*3/uL RBC 4.56 (4.20-5.50) X10*6/uL Hgb 11.9 L (12.0-16.0) g/dl Hct 35.3 L (37.0-47.0) % MCV 77.4 L (80.0-98.0) fL MCH 26.1 L (27.0-33.0) pg MCHC 33.7 (31.0-35.0) g/dl RDW 14.9 (11.0-16.0) % Plt Count 456 H (160-400) X10*3/uL MPV 9.7 (9.4-12.3) fL Immature Gran % (Auto) 0.3 (0.0-0.4) % Neut % (Auto) 37.4 L (45-73) % Lymph % (Auto) 56.4 H (20-40) % [place] % (Auto) 3.7 (2-11) % Eos % (Auto) 2.0 (0-4) % Baso % (Auto) 0.2 (0-2) % Lymph # (Auto) 7.5 H (1.2-4.9) X10*3/uL [place] # (Auto) 0.5 (0.1-1.2) X10*3/uL Eos # (Auto) 0.3 (0.0-0.4) X10*3/uL Baso # (Auto) 0.0 (0.0-0.2) X10*3/uL Abs Immat Gran (auto) 0.04 H (0.00-0.03) X10*3/uL Absolute Neuts (auto) 4.9 (2.0-8.3) x10*3/uL Absolute Nucleated RBC 0.000 (0.0-0.012) X10*3/uL Nucleated RBC % (auto) 0.0 (0.0-0.2) /100WBC Smear Tech's Comments VERIFIED VBG pH 7.44 H (7.32-7.43) VBG pCO2 30 mmHg VBG pO2 91 mmHg VBG HCO3 21 L (22-26) mmol/L VBG O2 Saturation 100.0 % VBG Base Excess -1.8 mmol/L Sodium 140 (135-145) mmol/L Potassium 3.7 (3.3-5.1) mmol/L Chloride 109 H (96-108) mmol/L Carbon Dioxide 18 L (22-29) mmol/L Anion Gap 17 (12-20) BUN 8 L (9-16) mg/dL Creatinine 0.73 (0.5-1.4) mg/dL Estim Creat Clear Calc 110.0 Estimated GFR > 60 Random Glucose 145 H (60-115) mg/dL Calcium 9.3 (8.4-10.2) mg/dL Total Bilirubin 0.4 (0.0-1.0) mg/dL Direct Bilirubin 0.1 (0.0-0.5) mg/dL AST 33 H (5-31) U/L ALT 23 (0-31) U/L Alkaline Phosphatase 87 (39-117) U/L Total Protein 8.1 H (6.5-8.0) g/dL Albumin 4.2 (3.5-5.0) g/dL Beta HCG, Quant < 2 mIU/mL Influenza Type A (PCR) NEGATIVE (Negative) Influenza Type B (PCR) NEGATIVE (Negative) RSV RNA Qual (PCR) NEGATIVE (Negative) SARS-CoV-2 RNA (RT-PCR) NEGATIVE (Negative) Independent Interpretation I performed an independent interpretation of an: Plain X-Ray Radiology Impression Discussion of test interpretation with radiology: I have reviewed the radiologist's reading. Radiologist Impression: Ill-defined opacity at the right lower lung. No pleural effusion. Heart size is normal. No acute fracture. IMPRESSION: Overlapping shadows versus early consolidation in the right lower lung. Follow-up as needed. Chest x-ray: Findings suggesting a middle lobe pneumonia. Critical Care Time Critical Care Time Critical Care Time: Yes Total Critical Care Time: 60 Attestation: I have personally provided critical care time. Time includes review of lab data, radiology results, discussion with consultants, and monitoring for potential decompensation. Intervention performed as documented. Discharge Plan Discharge Clinical Impression: Asthma with acute exacerbation, Pneumonia Patient Disposition: Home, Self-Care Instructions: Asthma (ED), Pneumonia (ED) Additional Instructions: Please follow-up with your primary care physician tomorrow. If you have any worsening or new symptoms, please return to the emergency room or call 911 Prescriptions: New doxycycline hyclate 100 mg capsule 100 mg PO BID Qty: 14 0RF prednisone 50 mg tablet 50 mg PO DAILY Qty: 4 0RF albuterol sulfate 90 mcg/actuation HFA aerosol inhaler 2 puff inhalation Q4-6H PRN (Reason: shortness of breath or wheezing) Qty: 8.5 0RF No Action amoxicillin-pot clavulanate [Augmentin] 875-125 mg tablet 1 tab PO BID 10 Days Qty: 20 0RF dexamethasone [Decadron] 6 mg tablet 6 mg PO ONCE Qty: 1 0RF acetaminophen-codeine 300-30 mg tablet 1 tab PO Q8H PRN (Reason: pain) Qty: 10 0RF doxylamine-pyridoxine (vit B6) [Diclegis] 10-10 mg tablet,delayed release (DR/EC) 1 tab PO BID Qty: 30 0RF ondansetron HCl [Zofran] 4 mg tablet 4 mg PO Q8H PRN (Reason: nausea and vomiting) Qty: 20 0RF doxycycline monohydrate 100 mg capsule 100 mg PO BID Qty: 14 0RF tramadol 50 mg tablet 50 mg PO Q6H PRN (Reason: pain) Qty: 20 0RF ondansetron 4 mg tablet,disintegrating 4 mg PO Q6-8H PRN (Reason: nausea and vomiting) Qty: 7 0RF prednisone 20 mg tablet 40 mg PO DAILY 4 Days Qty: 8 0RF penicillin V potassium 500 mg tablet 500 mg PO BID 10 Days Qty: 20 0RF Cepacol Sore Throat (lisset-men) 15-2.6 mg lozenge 1 cleopatra mucous membrane Q2-4H PRN (Reason: sore throat) Qty: 16 0RF Vitamin Plus Low Iron 27 mg iron- 1 mg tablet 1 tab PO DAILY 30 Days Qty: 30 11RF Rx Instructions: give with food (meal/snack) Stand Alone Forms: Work/School Release Print Language: [place]
[2024-10-17] MEDS: diphenhydrAMINE HCL 50 MG/ML VIAL IVPUSH (03:23)
[2024-10-17] MEDS: levalbuterol HCL 1.25 MG/3 ML VIAL.NEB INHALE (03:23)
[2024-10-17 03:25] VITALS: PULSE 153; RESP 20; O2SAT 93
[2024-10-17] MEDS: Magnesium Sulfate/H2O 2 GM/50 ML PIGGYBACK IV (03:26)
[2024-10-17 03:28] LABS: Venous Blood Gas Refer to POC result
[2024-10-17 03:28] LABS: Basophils Percent Auto 0.2 % (0-2); Eosinophils Absolute Auto 0.3 X10*3/uL (0.0-0.4); Hematocrit 35.3 % (37.0-47.0); Hemoglobin 11.9 g/dl (12.0-16.0); Imm Gran Abs Auto 0.04 X10*3/uL (0.00-0.03); Imm Gran Pct Auto 0.3 % (0.0-0.4); Lymphocytes Percent Auto 56.4 % (20-40); MANUAL DIFF FLAG SCAN; Mean Corpuscular HGB Conc 33.7 g/dl (31.0-35.0); Mean Corpuscular Hemoglobin 26.1 pg (27.0-33.0); Mean Corpuscular Volume 77.4 fL (80.0-98.0); Mean Platelet Volume 9.7 fL (9.4-12.3); Monocytes Absolute Auto 0.5 X10*3/uL (0.1-1.2); Monocytes Percent Auto 3.7 % (2-11); Neutrophils Absolute Auto 4.9 x10*3/uL (2.0-8.3); Neutrophils Percent Auto 37.4 % (45-73); Platelet Count 456 X10*3/uL (160-400); Red Blood Count 4.56 X10*6/uL (4.20-5.50); Red Cell Distribution Width 14.9 % (11.0-16.0); SCAN SMEAR FLAG 1; White Blood Count 13.2 X10*3/uL (4.8-10.8)
[2024-10-17] MEDS: LORazepam 1 MG TABLET PO (03:30)
[2024-10-17 03:31] VITALS: PULSE 165; RESP 31
[2024-10-17 03:39] LABS: Lymphocytes Absolute Auto 7.5 X10*3/uL (1.2-4.9)
--- NOTE | 2024-10-17 03:40 | PC.NURSE ---
PT comes from home with complaints of sudden onset dyspnea. pt has a hx of asthma and used her rescue inhaler multiple times. On arrival pt appear calm and cooperative in n acute distress however she is visibly shaky. PT reports she woke up feeling short of breath, and her bilateral hands are katya and itchy. Pt denies doing or eating anything different, she had taco mathews before bed eating chalupa supreme and baja blast beverage a usual order for her, and no recent physical exertion or exposure to irritants or recent illness. PT placed on circular saw filer, Vitals-HR in the 150s-170, 02 on RA 90%, pt placed on 2l NC. RT called to bedside. IV Access placed in pts Right forearm, labs drawn and swabs obtained and sent down. Medications administered as per JUL. Plan of care ongoing
[2024-10-17 03:49] LABS: SLIDE REVIEW VERIFIED
[2024-10-17 03:51] LABS: Alanine Aminotransferase 23 U/L (0-31); Albumin Level 4.2 g/dL (3.5-5.0); Alkaline Phosphatase 87 U/L (39-117); Anion Gap 17 (12-20); Aspartate Amino Transferase 33 U/L (5-31); Bilirubin Direct 0.1 mg/dL (0.0-0.5); Bilirubin Total 0.4 mg/dL (0.0-1.0); Blood Urea Nitrogen 8 mg/dL (9-16); Calcium 9.3 mg/dL (8.4-10.2); Carbon Dioxide 18 mmol/L (22-29); Chloride 109 mmol/L (96-108); Estimated Glomerular Filt Rate > 60; Glucose Random 145 mg/dL (60-115); Potassium 3.7 mmol/L (3.3-5.1); Sodium 140 mmol/L (135-145); Total Protein 8.1 g/dL (6.5-8.0)
[2024-10-17 04:09] LABS: Influenza A PCR NEGATIVE (Negative); Influenza B PCR NEGATIVE (Negative); Resp Syncy Virus RNA Qual PCR NEGATIVE (Negative); SARS COV2 PCR INHOUSE NEGATIVE (Negative)
[2024-10-17 04:13] LABS: VBG Base Excess -1.8 mmol/L; VBG HCO3 21 mmol/L (22-26); VBG pCO2 30 mmHg; VBG pH 7.44 (7.32-7.43); VBG pO2 91 mmHg
[2024-10-17 05:27] VITALS: BP 118/76; PULSE 130; RESP 14; TEMP 36.8; O2SAT 96
--- NOTE | 2024-10-17 05:28 | MHC.EDTECH ---
Pt ambulated with O2 sensor per MD order. Patient O2 saturation stayed above 97%. MD Andrea gonzalez.
[2024-10-17 05:46] LABS: HCG Quantitative < 2 mIU/mL
[2024-10-17] MEDS: Doxycycline Monohydrate 100 MG CAPSULE PO (05:56)
[2024-10-17 06:01] VITALS: BP 118/76; PULSE 130; RESP 14; TEMP 36.8; O2SAT 96
== END 2024-10-17 06:02 | disposition home or self-care (01) ==
PROVIDERS: Emergency Provider Emergency Medicine
DX: J45.901 Unspecified asthma with (acute) exacerbation (principal); J18.9 Pneumonia, unspecified organism; R06.02 Shortness of breath; Z79.899 Other long term (current) drug therapy; Z03.818 Encounter for observation for suspected exposure to other biological agents ruled out
CPT/HCPCS: 0241U; 36415; 71045; 71046; 80048; 80076; 82803; 84702; 85025; 94640; 96361; 96374; 96375; 99284; 99285; J1200; J2919; J3475

== ENCOUNTER → 2024-10-17 03:16 | Outpatient (BNV) | payer MEDICAID, SELFPAY | PROVIDERS: Emergency Provider Emergency Medicine; Visit Provider Radiology Diagnostic Radiology | DX: R06.02 Shortness of breath (principal) | CPT/HCPCS: 71045; 71046 ==